=== PATIENT | male | born 1960 | race Caucasian/White ===

== ENCOUNTER 2017-08-27 11:11 | Inpatient (IN) ==
--- NOTE | 2017-08-27 12:15 | Emergency Department Note ---
Disposition Clinical Impression: Hepatic encephalopathy Disposition: Admitted As Inpatient Condition: Fair Time of Disposition: 14:39 Altered Mental Status HPI - General Chief Complaint: ED Altered Mental Status Stated Complaint: bone CA, shakey/AMS Time Seen by Provider: 08/27/17 11:20 Source: family Limitations: altered mental status Nursing Notes Reviewed: Yes Vital Signs Reviewed: Yes - History of Present Illness HPI Narrative: Patient is a 57-year-old male with a past medical history of hepatocellular carcinoma with skeletal metastasis who presents from the cancer center with feeling shaky and being confused since this morning. Patient's states that the cancer center thinks it could be a reaction to one of his chemotherapy medications. Denies any fevers, chills, nausea, vomiting, chest pain, difficulty breathing, abdominal pain. is unsure about his urination or bowel movements. Thinks it is possible he might have a bladder infection. Patient is only oriented to his name. MD complaint: altered mental status Onset (ago): hour(s) Timing confirmed by: spouse Consistency of Symptoms: getting worse Context: cancer Associated symptoms: Reports: denies other symptoms, weakness. Denies: chest pain, cough, fever, chills, nausea/vomiting, shortness of breath - Related Data Home Medications Medication Instructions Recorded Confirmed Atorvastatin [Lipitor] 20 mg PO HS 07/17/15 08/27/17 Cyanocobalamin (Vitamin B-12) 1,000 mcg PO QAM 07/17/15 08/27/17 [Vitamin B12] Furosemide [Lasix] 40 mg PO TID 07/17/15 08/27/17 HydrOXYzine 25 mg PO TID 07/17/15 08/27/17 Lactulose 15 ml PO TID PRN 07/17/15 08/27/17 Multivitamin/Iron/Folic Acid 1 tab PO QAM 07/17/15 08/27/17 [Centrum Complete Multivit Tab] Zinc Sulfate 220 mg PO QAM 07/17/15 08/27/17 Insulin ASPART [NovoLOG] 8 - 10 unit SQ TID 11/03/16 08/27/17 Insulin Glargine [Lantus] 36 unit SQ HS 11/03/16 08/27/17 Rifaximin [Xifaxan] 550 mg PO BID 11/03/16 08/27/17 Iron Polysaccharide Complex 100 mg PO BID 06/16/17 08/27/17 [Ferrex 150] Omeprazole [PriLOSEC] 20 mg PO BID 08/12/17 08/27/17 Atenolol [Tenormin] 25 mg PO Q48H 08/27/17 08/27/17 Previous Rx's Medication Instructions Recorded Spironolactone [Aldactone] 50 mg PO DAILY #30 tablet 12/09/16 Fentanyl [Duragesic] 12 mcg TD Q72H #10 patch.td72 08/12/17 OxyCODONE Immed Rel [Roxicodone 5 5 mg PO Q4H PRN #120 tablet 08/12/17 MG] Allergies Allergy/AdvReac Type Severity Reaction Status Date / Time codeine AdvReac Vomiting Verified 08/27/17 10:32 All systems ED: reviewed and negative except as stated. Past Medical History - Past Medical History Attestation: Yes The following information was validated with the patient. Source: patient Medical history: Reports: cancer, cirrhosis, GERD, hyperlipidemia, hypertension , other Surgical history: Reports: cholecystectomy, orthopedic, other Psychiatric history: Reports: no psych history - Social History Smoking Status: Former smoker Smokeless Tobacco Status: No Alcohol use: Reports: none Drug use: Reports: none Physical Exam - General Limitations: altered mental status General appearance: alert, lethargic, cachectic - Head Head exam: atraumatic, normocephalic, normal inspection - Eye Eye exam: Present: normal appearance, EOMI - ENT ENT exam: normal exam, normal oropharynx, mucous membranes moist - Neck Neck exam: Present: normal inspection, full ROM, trachea midline - Chest Chest inspection: Present: normal inspection, symmetric chest wall rise - Respiratory Respiratory exam: Present: normal lung sounds bilaterally - Cardiovascular Cardiovascular exam: Present: regular rate, normal rhythm, normal heart sounds - Abdominal Exam Abdominal exam: Present: soft, Non-Tender. Absent: tenderness, distention, guarding, rebound, rigidity - Extremities Exam Extremities exam: Present: normal inspection, full ROM. Absent: tenderness, pedal edema - Back Exam Back exam: Present: tenderness - Neurological Exam Neurological exam: Present: alert. Absent: oriented X3 - Psychiatric Psychiatric exam: Present: normal affect, normal mood - Skin Skin exam: Present: warm, dry, intact, normal color Course Course Narrative: Patient seen and examined. Patient with bone metastasis from hepatocellular carcinoma. He is alert but only oriented to his name here. We will do altered mental status workup along with CT of the head. Spoke with oncology who has no additional input at this time. States the patient needs to be admitted, they can be consulted.. - Reevaluation(s) Reevaluation #1: Patient's lab work does show a little worsening hemoglobin at 8.9. He also has elevated ammonia. We will admit for hepatic encephalopathy. 60 g of lactulose given. I discussed with hospitalist Dr. Marroquin who has accepted for admission. Time: 14:00 Vital Signs Temperature 98.6 F 08/27/17 11:26 Pulse Rate 99 08/27/17 11:26 Respiratory Rate 18 08/27/17 11:26 Blood Pressure 119/63 08/27/17 11:26 O2 Sat by Pulse Oximetry 97 08/27/17 11:26 Temperature 98.7 F 08/27/17 20:29 Pulse Rate 112 08/27/17 20:29 Respiratory Rate 18 08/27/17 20:29 Blood Pressure 126/77 08/27/17 20:29 O2 Sat by Pulse Oximetry 95 08/27/17 20:29 Oxygen Delivery Oxygen Delivery Room Air Altered Mental Status - Medical Records Medical records reviewed: Yes I reviewed the patient's medical records. - Lab Data Lab results reviewed: Yes I reviewed the patient's lab results. Result diagrams: 08/27/17 12:26 08/27/17 12:26 Lab Results 08/27/17 08/27/17 08/27/17 Range/Units 12:26 12:26 12:26 WBC 9.1 (4.3-11.1) K/mcL RBC 3.33 L (4.19-5.50) M/mcL Hgb 8.6 L (12.9-16.9) g/dL Hct 25.8 L (37.5-50.1) % MCV 77.5 L (83.0-100.0) fL MCH 25.8 L (28.0-33.3) pg MCHC 33.3 (31.6-35.5) g/dL RDW 18.9 H (11.5-14.5) % Plt Count 89 L (140-400) K/mcL MPV 9.6 (9.4-12.4) fL Immature Gran % 1.2 (0-4) % Seg Neutrophils % 82.8 % Lymphocytes % 6.9 % Monocytes % 8.7 % Eosinophils % 0.2 % Basophils % 0.2 % Neutrophils # 7.5 (1.6-8.9) K/mcL Lymphocytes # 0.6 (0.6-4.6) K/mcL Monocytes # 0.8 (0.0-1.3) K/mcL Eosinophils # 0.0 (0.0-0.6) K/mcL Basophils # 0.0 (0.0-0.2) K/mcL Nucleated RBCs/100 WBC 0.3 H (0) /100 WBC Immature Plt Fraction 4.4 (1.1-6.1) % PT 20.2 H (9.4-12.1) Seconds INR 1.9 APTT 31.1 (26.0-36.0) Seconds Sodium 131 L (136-145) mEq/L Potassium 4.0 (3.5-4.5) mEq/L Chloride 98 (98-109) mEq/L Carbon Dioxide 22 (19-29) mEq/L BUN 25 (8-26) mg/dL Creatinine 1.04 (0.72-1.25) mg/dL Est GFR ( Amer) > 60 (> 60) Est GFR (Non-Af Amer) > 60 (> 60) BUN/Creatinine Ratio 24 (6-26) Glucose 105 H (70-99) mg/dL Calculated Osmolality 277 L (280-300) Calcium 7.9 L (8.6-10.8) mg/dL Total Bilirubin 1.4 H (0.2-1.2) mg/dL Direct Bilirubin 0.8 H (0.0-0.5) mg/dL Indirect Bilirubin 0.6 (0.0-1.2) mg/dL AST 76 H (5-34) Units/L ALT 70 H (0-55) Units/L Alkaline Phosphatase 802 H (38-126) Units/L Ammonia (18-72) mcmol/L Troponin I (0-0.03) ng/mL Serum Total Protein 6.3 (6.0-8.3) g/dL Albumin 2.2 L (3.5-5.0) g/dL Globulin 4.1 H (2.4-3.5) g/dL Albumin/Globulin Ratio 0.5 L (1.1-2.2) TSH 1.471 (0.350-4.840) mcIU/mL Urine Color (Yellow) Urine Clarity (Clear) Urine pH (5.0-8.0) pH Units Ur Specific Converse (1.010-1.025) Urine Protein (Neg-Trace) mg/dL Urine Glucose (UA) (Normal) mg/dL Urine Ketones (Negative) mg/dL Urine Blood (Negative) Urine Nitrite (Negative) Urine Bilirubin (Negative) Urine Urobilinogen (Normal) mg/dL Ur Leukocyte Esterase (Negative) Ur Culture Indicated? (NO) Urine Opiates Screen (Qznang=285) ng/mL Ur Barbiturates Screen (Efgnos=787) ng/mL Ur Phencyclidine Scrn (Cutoff=25) ng/mL Ur Amphetamines Screen (Uhnotf=2411) ng/mL U Benzodiazepines Scrn (Xfcuwb=690) ng/mL Urine Cocaine Screen (Cutoff= 300) ng/mL U Marijuana (THC) Screen (Cutoff = 50) ng/mL Ethyl Alcohol < 10 (0-10) mg/dL 08/27/17 08/27/17 08/27/17 Range/Units 12:26 12:26 12:32 WBC (4.3-11.1) K/mcL RBC (4.19-5.50) M/mcL Hgb (12.9-16.9) g/dL Hct (37.5-50.1) % MCV (83.0-100.0) fL MCH (28.0-33.3) pg MCHC (31.6-35.5) g/dL RDW (11.5-14.5) % Plt Count (140-400) K/mcL MPV (9.4-12.4) fL Immature Gran % (0-4) % Seg Neutrophils % % Lymphocytes % % Monocytes % % Eosinophils % % Basophils % % Neutrophils # (1.6-8.9) K/mcL Lymphocytes # (0.6-4.6) K/mcL Monocytes # (0.0-1.3) K/mcL Eosinophils # (0.0-0.6) K/mcL Basophils # (0.0-0.2) K/mcL Nucleated RBCs/100 WBC (0) /100 WBC Immature Plt Fraction (1.1-6.1) % PT (9.4-12.1) Seconds INR APTT (26.0-36.0) Seconds Sodium (136-145) mEq/L Potassium (3.5-4.5) mEq/L Chloride (98-109) mEq/L Carbon Dioxide (19-29) mEq/L BUN (8-26) mg/dL Creatinine (0.72-1.25) mg/dL Est GFR ( Amer) (> 60) Est GFR (Non-Af Amer) (> 60) BUN/Creatinine Ratio (6-26) Glucose (70-99) mg/dL Calculated Osmolality (280-300) Calcium (8.6-10.8) mg/dL Total Bilirubin (0.2-1.2) mg/dL Direct Bilirubin (0.0-0.5) mg/dL Indirect Bilirubin (0.0-1.2) mg/dL AST (5-34) Units/L ALT (0-55) Units/L Alkaline Phosphatase (38-126) Units/L Ammonia 140 H (18-72) mcmol/L Troponin I 0.02 (0-0.03) ng/mL Serum Total Protein (6.0-8.3) g/dL Albumin (3.5-5.0) g/dL Globulin (2.4-3.5) g/dL Albumin/Globulin Ratio (1.1-2.2) TSH (0.350-4.840) mcIU/mL Urine Color Dark Yellow (Yellow) Urine Clarity Clear (Clear) Urine pH 5.0 (5.0-8.0) pH Units Ur Specific Converse 1.015 (1.010-1.025) Urine Protein Negative (Neg-Trace) mg/dL Urine Glucose (UA) Normal (Normal) mg/dL Urine Ketones Negative (Negative) mg/dL Urine Blood Negative (Negative) Urine Nitrite Negative (Negative) Urine Bilirubin Negative (Negative) Urine Urobilinogen Normal (Normal) mg/dL Ur Leukocyte Esterase Negative (Negative) Ur Culture Indicated? NO (NO) Urine Opiates Screen (Czjmuf=856) ng/mL Ur Barbiturates Screen (Gneacn=135) ng/mL Ur Phencyclidine Scrn (Cutoff=25) ng/mL Ur Amphetamines Screen (Gqvciw=9916) ng/mL U Benzodiazepines Scrn (Wkxddd=897) ng/mL Urine Cocaine Screen (Cutoff= 300) ng/mL U Marijuana (THC) Screen (Cutoff = 50) ng/mL Ethyl Alcohol (0-10) mg/dL 08/27/17 Range/Units 12:32 WBC (4.3-11.1) K/mcL RBC (4.19-5.50) M/mcL Hgb (12.9-16.9) g/dL Hct (37.5-50.1) % MCV (83.0-100.0) fL MCH (28.0-33.3) pg MCHC (31.6-35.5) g/dL RDW (11.5-14.5) % Plt Count (140-400) K/mcL MPV (9.4-12.4) fL Immature Gran % (0-4) % Seg Neutrophils % % Lymphocytes % % Monocytes % % Eosinophils % % Basophils % % Neutrophils # (1.6-8.9) K/mcL Lymphocytes # (0.6-4.6) K/mcL Monocytes # (0.0-1.3) K/mcL Eosinophils # (0.0-0.6) K/mcL Basophils # (0.0-0.2) K/mcL Nucleated RBCs/100 WBC (0) /100 WBC Immature Plt Fraction (1.1-6.1) % PT (9.4-12.1) Seconds INR APTT (26.0-36.0) Seconds Sodium (136-145) mEq/L Potassium (3.5-4.5) mEq/L Chloride (98-109) mEq/L Carbon Dioxide (19-29) mEq/L BUN (8-26) mg/dL Creatinine (0.72-1.25) mg/dL Est GFR ( Amer) (> 60) Est GFR (Non-Af Amer) (> 60) BUN/Creatinine Ratio (6-26) Glucose (70-99) mg/dL Calculated Osmolality (280-300) Calcium (8.6-10.8) mg/dL Total Bilirubin (0.2-1.2) mg/dL Direct Bilirubin (0.0-0.5) mg/dL Indirect Bilirubin (0.0-1.2) mg/dL AST (5-34) Units/L ALT (0-55) Units/L Alkaline Phosphatase (38-126) Units/L Ammonia (18-72) mcmol/L Troponin I (0-0.03) ng/mL Serum Total Protein (6.0-8.3) g/dL Albumin (3.5-5.0) g/dL Globulin (2.4-3.5) g/dL Albumin/Globulin Ratio (1.1-2.2) TSH (0.350-4.840) mcIU/mL Urine Color (Yellow) Urine Clarity (Clear) Urine pH (5.0-8.0) pH Units Ur Specific Converse (1.010-1.025) Urine Protein (Neg-Trace) mg/dL Urine Glucose (UA) (Normal) mg/dL Urine Ketones (Negative) mg/dL Urine Blood (Negative) Urine Nitrite (Negative) Urine Bilirubin (Negative) Urine Urobilinogen (Normal) mg/dL Ur Leukocyte Esterase (Negative) Ur Culture Indicated? (NO) Urine Opiates Screen Negative (Arcucz=466) ng/mL Ur Barbiturates Screen Negative (Rwzoue=455) ng/mL Ur Phencyclidine Scrn Negative (Cutoff=25) ng/mL Ur Amphetamines Screen Negative (Eawncu=9551) ng/mL U Benzodiazepines Scrn Negative (Qqewik=855) ng/mL Urine Cocaine Screen Negative (Cutoff= 300) ng/mL U Marijuana (THC) Screen Negative (Cutoff = 50) ng/mL Ethyl Alcohol (0-10) mg/dL - Radiology Data Radiology results reviewed: Yes I reviewed the patient's radiology results. Chest X-Ray 08/27/17 12:08 IMPRESSION: No acute process. D/ / Raymundo Crews MD / Raymundo Crews MD Interpreting Provider: Raymundo Crews MD - EKG Data EKG attestation: Yes I reviewed and interpreted this EKG. EKG results narrative: EKG done at 1126 shows normal sinus rhythm with a rate of 99 beats per minute. No acute ST elevation or depression. Normal axis. Appears unchanged from prior EKG done 04/18/2015. Attestation Statement - Attestation Attestation: I examined this patient and my medical decision-making was reviewed with the Resident Physician. I agree with the documented findings, disposition and treatment plan as described except to the extent set forth below. Patient to the ED with altered mental status. He was sent from the cancer center. He is currently under their care for hepatocellular carcinoma. On examination he is awake and alert. Disoriented. Soft abdomen with no ascites. Lungs clear. Plan. The patient has an elevated ammonia level. Head CT unremarkable. Admitted to medicine. 60 g of lactulose given.
[2017-08-27 12:35] LABS: Basophils % 0.2 %; Eosinophils % 0.2 %; Hemoglobin 8.6 g/dL (12.9-16.9)
[2017-08-27 12:37] LABS: Hematocrit 25.8 % (37.5-50.1); Immature Granulocytes % 1.2 % (0-4); Immature Platelets 4.4 % (1.1-6.1); Lymphocytes # 0.6 K/mcL (0.6-4.6); Lymphocytes % 6.9 %; Mean Corpuscular HGB Conc 33.3 g/dL (31.6-35.5); Mean Corpuscular Hemoglobin 25.8 pg (28.0-33.3); Mean Corpuscular Volume 77.5 fL (83.0-100.0); Mean Platelet Volume 9.6 fL (9.4-12.4); Monocytes # 0.8 K/mcL (0.0-1.3); Monocytes % 8.7 %; Neutrophils # 7.5 K/mcL (1.6-8.9); Nucleated Red Blood Cells 0.3 /100 WBC (0); Platelet Count 89 K/mcL (140-400); Red Blood Count 3.33 M/mcL (4.19-5.50); Red Cell Distribution Width 18.9 % (11.5-14.5); Segmented Neutrophils % 82.8 %
[2017-08-27 12:38] LABS: Bilirubin,Urine Negative (Negative); Blood,Urine Negative (Negative); Clarity,Urine Clear (Clear); Color,Urine Dark Yellow (Yellow); Glucose,Urine (UA) Normal (Normal); Ketones,Urine Negative (Negative); Leukocyte Esterase,Urine Negative (Negative); Nitrite,Urine Negative (Negative); Protein,Urine Negative (Neg-Trace); Specific Gravity,Urine 1.015 (1.010-1.025); Urobilinogen,Urine Normal (Normal)
[2017-08-27 12:44] LABS: Amphetamine Screen,Urine Negative ng/mL (Cutoff=1000); Barbiturate Screen,Urine Negative ng/mL (Cutoff=200); Benzodiazepines Screen,Urine Negative ng/mL (Cutoff=200); Cannabinoid Screen,Urine Negative ng/mL (Cutoff = 50); Cocaine Screen,Urine Negative ng/mL (Cutoff= 300); Opiate Screen,Urine Negative ng/mL (Cutoff=300); Phencyclidine Screen,Urine Negative ng/mL (Cutoff=25)
[2017-08-27 12:45] LABS: INR 1.9; Prothrombin Time 20.2 Seconds (9.4-12.1)
[2017-08-27 12:48] LABS: Activated Partial Thrombo Time 31.1 Seconds (26.0-36.0)
[2017-08-27 12:49] LABS: BUN/Creatinine Ratio 24 (6-26); Blood Urea Nitrogen 25 mg/dL (8-26); Carbon Dioxide 22 mEq/L (19-29); Chloride 98 mEq/L (98-109); Glucose 105 mg/dL (70-99); Sodium 131 mEq/L (136-145); eGFR For African Americans > 60 (> 60); eGFR For Non-African Americans > 60 (> 60)
[2017-08-27 12:50] LABS: Alanine Aminotransferase 70 Units/L (0-55); Albumin 2.2 g/dL (3.5-5.0); Albumin/Globulin Ratio 0.5 (1.1-2.2); Alkaline Phosphatase 802 Units/L (38-126); Aspartate Amino Transferase 76 Units/L (5-34); Bilirubin,Direct 0.8 mg/dL (0.0-0.5); Bilirubin,Indirect 0.6 mg/dL (0.0-1.2); Bilirubin,Total 1.4 mg/dL (0.2-1.2); Calcium 7.9 mg/dL (8.6-10.8); Ethanol < 10 mg/dL (0-10); Globulin 4.1 g/dL (2.4-3.5); Osmolality,Calculated 277 (280-300); Total Protein 6.3 g/dL (6.0-8.3)
[2017-08-27 13:11] LABS: Thyroid Stimulating Hormone 1.471 mcIU/mL (0.350-4.840)
[2017-08-27] MEDS ORDERED: Lactulose Oral Soln 20 GM/30 ML UDC PO ONE (13:46)
[2017-08-27] MEDS ORDERED: Ondansetron 4 MG/2 ML VIAL IVP PRN (14:37)
[2017-08-27] MEDS ORDERED: Acetaminophen 325 MG TABLET PO PRN (14:37)
[2017-08-27] MEDS ORDERED: Naloxone 0.4 MG/ML INJ IVP PRN (14:37)
[2017-08-27] MEDS ORDERED: *HR* OxyCODONE Immed Rel 5 MG TABLET PO PRN (14:59)
[2017-08-27] MEDS ORDERED: Dextrose Gel 15 GM PO PRN ×2 (15:03)
[2017-08-27] MEDS ORDERED: Benzonatate 100 MG CAPSULE PO PRN (15:03)
[2017-08-27] MEDS ORDERED: D5% in Water 1,000 ML IVC PRN (15:03)
[2017-08-27] MEDS ORDERED: *HR* Dextrose 50 % in Water (Syg) 50 ML SYRINGE IVP PRN (15:03)
--- NOTE | 2017-08-27 15:22 | Internal Med History&Physical ---
<Alize Valle - Last Filed: 08/27/17 18:25> Date of Encounter: 08/27/17 Internal Medicine - H&P: HPI History of present illness: Mr. Moralez is a 57 year old male Internal Medicine - H&P: Meds Atorvastatin [Lipitor] 20 mg PO HS 07/17/15 [History] Cyanocobalamin (Vitamin B-12) [Vitamin B12] 1,000 mcg PO QAM 07/17/15 [History] Furosemide [Lasix] 40 mg PO TID 07/17/15 [History] HydrOXYzine 25 mg PO TID 07/17/15 [History] Lactulose 15 ml PO TID PRN 07/17/15 [History] Multivitamin/Iron/Folic Acid [Centrum Complete Multivit Tab] 1 tab PO QAM [History] Zinc Sulfate 220 mg PO QAM 07/17/15 [History] Insulin ASPART [NovoLOG] 8 - 10 unit SQ TID 11/03/16 [History] Insulin Glargine [Lantus] 36 unit SQ HS 11/03/16 [History] Rifaximin [Xifaxan] 550 mg PO BID 11/03/16 [History] Spironolactone [Aldactone] 50 mg PO DAILY #30 tablet 12/09/16 [Rx] Iron Polysaccharide Complex [Ferrex 150] 100 mg PO BID 06/16/17 [History] Fentanyl [Duragesic] 12 mcg TD Q72H #10 patch.td72 08/12/17 [Rx] Omeprazole [PriLOSEC] 20 mg PO BID 08/12/17 [History] OxyCODONE Immed Rel [Roxicodone 5 MG] 5 mg PO Q4H PRN #120 tablet 08/12/17 [Rx] Atenolol [Tenormin] 25 mg PO Q48H 08/27/17 [History] 3 Allergy/AdvReac Type Severity Reaction Status Date / Time codeine AdvReac Vomiting Verified 08/27/17 10:32 All Systems PM: A 10-system review of systems was performed and is negative for pertinent findings except as documented above in the HPI. - Constitutional Vitals: Temp Pulse Resp BP Pulse Ox 98.2 F 93 16 112/65 99 08/27/17 15:40 08/27/17 15:40 08/27/17 15:40 08/27/17 15:40 08/27/17 16:05 Internal Med - H&P Results - Labs CBC & Chem 7: 08/27/17 12:26 08/27/17 12:26 - Attending Attestation Patient seen and examined, agree with assessment and plan of Isai Meraz CNP. Patient with hepatic encephalopathy in setting of cirrhosis and metastatic HCC. Patient admits to infrequent stools recently (approximately Q24 hours). Lactulose given on arrival to floor, and patient and family instructed on importance of titrating lactulose to 3 soft bowel movements daily. Patient awake but slightly lethargic on my evaluation, eating dinner. Abdomen soft and nontender, no fluid wave appreciated. <Isai Meraz G - Last Filed: 08/27/17 18:29> Date of Encounter: 08/27/17 Time of Encounter: 14:00 Assessment and Plan (1) Altered mental status Current visit: Yes Status: Acute Patient presents with acute AMS since yesterday afternoon. Patient has hx of hepatocellular carcinoma with skeletal metastases and cirrhosis. CT of the head today shows no intracranial abnormality. Ammonia level on admission was 140. Patient was oriented only to self in ED upon arrival. Patient takes 30 gm of lactulose daily and reports taking more yesterday due to constipation. 60 gm PO administered in the ED. Patient alert and oriented x3 following 60 gm administration. Will continue 60 gm BID with titration for 3 BMs daily and monitor patient's neurological status. Falls/safety precautions ordered. Qualifiers: Altered mental status type: delirium Qualified Code(s): R41.0 - Disorientation, unspecified (2) Hyperammonemia Current visit: Yes Status: Acute Patient presents with acute hyperammonemia level of 140 on admission which is most likely causing his AMS in combination with current constipation. Patient takes 30 gm lactulose daily. Received 60 gm in ED. Will administer 60 gm BID with titration for 3 BMs daily. Routine ammonia ordered today and in a.m. labs. Monitor patient for signs of declining neurological status. (3) Hyponatremia Current visit: Yes Status: Acute Patient presents with acute hyponatremia of 131 on admission most likely due to advanced cirrhosis. Will monitor sodium levels in a.m. labs. Will hold IV fluids and encourage PO liquids for now. Consider IV 0.9 NS if sodium level continues to fall. (4) Difficulty urinating Current visit: Yes Status: Acute Patient reports acute difficulty in urinating over the past 24 hours. Initial U/ A not indicative for culture. Bladder scans PRN for possible placement of indwelling Moore catheter if needed. Monitor I&O and daily weight. Continue spironolactone. (5) Diabetes Current visit: Yes Status: Chronic Hx of chronic diabetes controlled with insulin. BG 105 on admission. Will administer low-dose correction sliding scale insulin and hypoglycemic protocol. BG monitoring ACHS. A1c ordered in a.m. labs. Qualifiers: Diabetes mellitus type: type 2 Diabetes mellitus complication status: with unspecified complications Diabetes mellitus termite technician insulin use: with fdc use Qualified Code(s): E11.8 - Type 2 diabetes mellitus with unspecified complications; Z79.4 - termite technician (current) use of insulin (6) HTN (hypertension) Current visit: Yes Status: Chronic Hx of chronic HTN. Monitor patient and VS and continue spironolactone and atenolol. Qualifiers: Hypertension type: essential hypertension Qualified Code(s): I10 - Essential (primary) hypertension (7) HLD (hyperlipidemia) Current visit: Yes Status: Chronic Hx of chronic HLD. Lipid panel ordered in a.m. labs. Continue patient's PO Lipitor. Qualifiers: Hyperlipidemia type: pure hypercholesterolemia Qualified Code(s): E78.00 - Pure hypercholesterolemia, unspecified; E78.0 - Pure hypercholesterolemia (8) GERD (gastroesophageal reflux disease) Current visit: Yes Status: Chronic IVP Zofran Q6 PRN for nausea. IVP Protonix 40 mg BID for GERD symptoms. Qualifiers: Esophagitis presence: esophagitis presence not specified Qualified Code(s) : K21.9 - Gastro-esophageal reflux disease without esophagitis (9) Anemia Current visit: Yes Status: Chronic Hgb 8.6 and Hct 25.8 today, down from 11.0 and 33.2 on 08/12/17. Patient and deny unusual bleeding or blood in stool/emesis. Fecal hemoccult ordered. H/ H ordered in a.m. labs. Monitor follow-up labs and patient for signs of bleeding. Iron profile ordered. Will continue patient's PO B vitamins and iron supplementation. Qualifiers: Anemia type: unspecified type Qualified Code(s): D64.9 - Anemia, unspecified (10) DVT prophylaxis Current visit: Yes Status: Acute Bilateral SCDs to be placed on patient's LEs for DVT prophylaxis. Pharmacologic DVT prophylaxis contraindicated due to current drop in Hgb and Hct which may indicate bleed of unknown source. Internal Medicine - H&P: HPI Chief complaint: Altered Mental Status Admitted From: Emergency Dept Plans for Post Hospital Care: Home History of present illness: Mr. Moralez is a 57 year old male with medical history of hepatocellular carcinoma with skeletal metastasis, cirrhosis, GERD, HLD, HTN, diabetes controlled with insulin presents from the ED with chief complaint of altered mental status and shakiness that his reports began last night. Patient is currently taking chemotherapy pills and is followed by Dr. Qureshi. Patient's last cancer pill was taken yesterday morning. Patient was at oncology appointment today and was sent to the ED due to AMS and shakiness. Patient's states Dr. Qureshi is going to discontinue chemotherapy pill and replace with infusion therapy. Patient's states that Mr. Moralez has not had a bowel movement in several days and that he took more lactulose than usual yesterday for the constipation. She reports patient began acting altered yesterday afternoon and worsened over the evening. Patient and report difficulty in urinating but deny any recent illness, fever, chills, nausea, vomiting, chest pain, shortness of breath, abdominal pain, unusual bleeding, changes in vision, lightheadedness, dizziness, presyncope, or syncope. On admission, patient's vital signs include temperature of 98.6F, heart rate 99 bpm, respiratory rate of 18, BP 119/63, and SPO2 97% on room air. Abnormal labs include Hgb of 8.6 and HCT of 25.8 (down from 11.0 and 33.2 on 08/12/17), MCV of 77.5, MCH of 25.8, platelets of 89, PT of 20.2, sodium of 131, glucose of 105, calcium 7.9, total bilirubin 1.4, direct bilirubin 0.8, AST of 76, AST of 70, alkaline phosphatase 802, ammonia of 140. CT of the head today shows no acute intracranial abnormality. 1-View CXR today shows no acute process. Upon arriving to the ED, patient was only oriented to self. During examination following 60 gm of lactulose, patient was alert and oriented x3 and denies any discomfort. HR is RRR. Lungs clear bilaterally on auscultation. Patient is hemodynamically stable and reports no acute distress. Information obtained from patient, , chart review, and previous medical records. Mr. Moralez is at high risk for morbidity based on current cancer status, history of liver compromise, risk factors, and history and will be placed as observation status. Time spent with patient and family greater than 40 minutes. Past Med Surg Social Fam HX - Past Medical History Source: patient, old records reviewed, obtained from family Medical history: cancer (Hepatocellular carcinoma with skeletal metastases), cirrhosis, diabetes, GERD, hyperlipidemia, hypertension, other Psychiatric history: no psych history - Past Surgical History Surgical History: cholecystectomy, orthopedic, other - Social History Smoking Status: Current every day smoker Packs per day: 1/2 PPD Smokeless Tobacco Status: No Alcohol use: none Drug use: none Current living situation: Home, With Family Activity Level: Uses cane/walker Recent Out of Country Travel Within the Last 8 Weeks: No Exposure or Possible Exposure to Illness During Travel: No - Family History Mother Race: Family Member Ethnicity: Non- Living Status: Age at : 72 Cause of : HD Hx Family Cardiac Disorders: Yes (HD, HTN) Hx Family Neurologic Disorders: Yes (Alzheimer's disease) Father Race: Family Member Ethnicity: Non- Living Status: Age at : 68 Cause of : Lung cancer Hx Family Cardiac Disorders: Yes (HD) Hx Family Cancer: Yes (Lung, Jaw) Hx Family GI Disorders: Yes (Cirrhosis) Brother Race: Family Member Ethnicity: Non- Living Status: Still Living Hx Family Medical Disorders: No Sister Race: Family Member Ethnicity: Non- Living Status: Still Living Hx Family Endocrine Disorder: Yes (DM) All Systems PM: A 10-system review of systems was performed and is negative for pertinent findings except as documented above in the HPI. - Constitutional Constitutional: as per HPI, weakness, no chills, no fever(s), no night sweats - EENT Eyes: no change in vision, no discharge, no pain, no photophobia Ears: no ear discharge, no ear pain, no tinnitus Nose, mouth and throat: no dysphagia, no nasal discharge, no neck pain, no sore throat - Breasts Breasts: as per HPI - Cardiovascular Cardiovascular ROS IM: other (Tachycardia), no chest pain, no diaphoresis, no dyspnea, no lightheadedness, no palpitations, no syncope - Respiratory Respiratory: no cough, no dyspnea, no wheezing, no excessive phlegm production - Gastrointestinal Gastrointestinal: as per HPI, constipation, no abdominal pain, no diarrhea, no hematemesis, no hematochezia, no melena, no nausea, no vomiting - Genitourinary Genitourinary ROS male: as per HPI, difficulty urinating - Musculoskeletal Musculoskeletal ROS IM: no numbness, no tingling - Integumentary Integumentary IM: no rash, no unusual bruising - Neurological Neurological ROS: no confusion, no convulsions, no focal weakness, no numbness, no tingling, no tremor(s) - Psychiatric Psychiatric: as per HPI - Endocrine Endocrine IM: as per HPI - Hematologic/Lymphatic Hematologic/Lymphatic: no easy bruising - Allergic/Immunologic Allergic/Immunologic: as per HPI - Constitutional Vitals: Temp Pulse Resp BP Pulse Ox 98.6 F 97 18 119/65 100 08/27/17 11:26 08/27/17 12:37 08/27/17 14:31 08/27/17 14:31 08/27/17 12:37 General appearance: Present: cooperative, A&O X 3, pleasant, no acute distress, underweight, answers questions appropriately - Head Head exam: Present: atraumatic, normocephalic - Eye Eye exam: Present: PERRL, conjuntiva pink, sclera anicteric Pupils: Present: PERRL - ENT ENT exam: Present: normal exam - Neck Neck exam general surgery: Present: normal inspection, supple, trachea midline - Respiratory Respiratory exam: Present: CTAB. Absent: accessory muscle use, rales, rhonchi, wheezes - Cardiovascular Cardiovascular exam: Present: RRR, +S1, +S2. Absent: diastolic murmur, gallop, rubs, systolic murmur - GI/Abdominal GI/Abdominal exam: Present: diminished bowel sounds, soft, no peritoneal signs. Absent: distended, tenderness - Rectal Rectal exam: Present: deferred - Additional comments: exam deferred. - Extremities Exam Extremities exam: Present: warm, radial pulses palpable and symmetrical. Absent : calf tenderness, cyanotic, pedal edema - Back Exam Back exam: Present: normal inspection - Neurological Exam Neurological exam: Present: alert, oriented X3 - Psychiatric Psychiatric exam: Present: flat affect, normal affect - Skin Skin exam: Present: dry, intact Internal Med - H&P Results - Labs CBC & Chem 7: 08/27/17 12:26 08/27/17 12:26 - EKG Data EKG shows normal: sinus rhythm Rate: normal - EKG Data Prior EKG available for review: yes EKG comments: 08/27/17 15:36 EKG dated 04/18/15 shows sinus rhythm with marked sinus arrhythmia with first- degree AV block and moderate intraventricular conduction delay. EKG dated 08/27/17 shows sinus rhythm and normal ECG. - Diagnostic Studies Chest x-ray Additional comments: Impressions Chest X-Ray 08/27/17 12:08 IMPRESSION: No acute process. D/ / Raymundo Crews MD / Raymundo Crews MD Interpreting Provider: Raymundo Crews MD CT scan - head Additional comments: Impressions Head CT 08/27/17 12:09 IMPRESSION: No acute intracranial abnormality. D/ / Howie Little MD / Howie Little MD Interpreting Provider: Howie Little MD
[2017-08-27] MEDS: Furosemide 40 MG TABLET PO SCH ×2 (15:54→22:37)
[2017-08-27] MEDS: Nicotine 14 MG PATCH.TD24 TD SCH (15:54)
[2017-08-27] MEDS: Insulin LISPRO 300 UNITS/3 ML VIAL SQ SCH ×2 (16:11→22:35)
[2017-08-27 17:45] LABS: % Iron Saturation 10 % (20-55); Iron 27 mcg/dL (65-175); Transferrin 185 mg/dL (174-364)
[2017-08-27] MEDS: *HR* FentaNYL PATCH 12 MCG PATCH TD SCH (17:52)
--- NOTE | 2017-08-27 19:54 | Oncology Inp Consult Note ---
Date of Encounter: 08/27/17 Time of Encounter: 19:45 Assessment and Plan (1) Hepatic encephalopathy Status: Resolved Assessment and plan: - Clinical and lab findings are consistent with acute liver encephalopathy, based on improvement after treatment with lactulose and amonia level of 140 mg/ dl. - Total bilirrubin level is elevated, but close to prior baseline values. (2) HCC (hepatocellular carcinoma) Status: Chronic Assessment and plan: - Being treated with palliative sorafenib 400 mg BID since May 2017. Last dose yesterday. - Continue holding sorafenib, and upon discharge arrange for a short follow up with primary oncologist to discuss the appropriate time to resume it. (3) Diabetes Status: Chronic Assessment and plan: - Serum glucoses within acceptable range. Continue management as per primary team. Qualifiers: Diabetes mellitus type: type 2 Diabetes mellitus complication status: with unspecified complications Diabetes mellitus halfway insulin use: with halfway use Qualified Code(s): E11.8 - Type 2 diabetes mellitus with unspecified complications; Z79.4 - petroleum terminal plant operator (current) use of insulin - Data of Consult Requesting Physician: Jyothi Brown MD Primary Care Provider: Raymundo Escobedo, - Consult Narrative Reason for consult: management of metastatic HCC, liver encephalopathy History of present illness: Mr. Moralez is a 57 year old male with metastatic HCC referred from the oncology clinic to the ED after found to be acutely confused. He was accompanied by his during the hospital visit. His past medical history includes a history of liver cirrhosis due to alcoholism. His oncology history includes s/p TACE x 2 in 07/2015 and August 2015, percutaneous ablation in Oct 2015, another treatment with TACE in November 2016 and Dec 2016, Ytrium-90 in March 2017. MRI from April 2017 showed evidence of multi focal metastatic disease with lesions at the level of his spine. he was started on sorafenib on June 08, 2017. He took his last dose of sorafenib yesterday. He returned today to the oncology office and was found to present tremors, and being confused. He was referred to the ED, his amonia level was found 140. He was started on lactulose and so far has had 2 soft bowel movements. His thinks that his mental status has improved significantly, currently talking and explaining basic concepts about his medical issues, however still not back to baseline; he was unable to tell me the current month and the year. He denies pain during the visit. Past Med Surg Social Fam HX - Past Medical History Medical history: cancer (Hepatocellular carcinoma with skeletal metastases), cirrhosis, diabetes, GERD, hyperlipidemia, hypertension, other Psychiatric history: no psych history - Past Surgical History Surgical History: cholecystectomy, orthopedic, other - Social History Smoking Status: Current every day smoker Packs per day: 1/2 PPD Smokeless Tobacco Status: No Alcohol use: none Drug use: none - Family History Brother History Unknown: Yes Race: Family Member Ethnicity: Non- Living Status: Still Living Hx Family Medical Disorders: No Sister History Unknown: Yes Race: Family Member Ethnicity: Non- Living Status: Still Living Hx Family Endocrine Disorder: Yes (DM) Mother History Unknown: Yes Race: Family Member Ethnicity: Non- Living Status: Age at : 72 Cause of : HD Hx Family Cardiac Disorders: Yes (HD, HTN) Hx Family Neurologic Disorders: Yes (Alzheimer's disease) Father History Unknown: Yes Race: Family Member Ethnicity: Non- Living Status: Age at : 68 Cause of : Lung cancer Hx Family Cardiac Disorders: Yes (HD) Hx Family Respiratory Disorders: Yes (only 1 lung due to lung cancer) Hx Family Cancer: Yes (Lung, Jaw) Hx Family GI Disorders: Yes (Cirrhosis) Medications and Allergies Atorvastatin [Lipitor] 20 mg PO HS 07/17/15 [History] Cyanocobalamin (Vitamin B-12) [Vitamin B12] 1,000 mcg PO QAM 07/17/15 [History] Furosemide [Lasix] 40 mg PO TID 07/17/15 [History] HydrOXYzine 25 mg PO TID 07/17/15 [History] Lactulose 15 ml PO TID PRN 07/17/15 [History] Multivitamin/Iron/Folic Acid [Centrum Complete Multivit Tab] 1 tab PO QAM [History] Zinc Sulfate 220 mg PO QAM 07/17/15 [History] Insulin ASPART [NovoLOG] 8 - 10 unit SQ TID 11/03/16 [History] Insulin Glargine [Lantus] 36 unit SQ HS 11/03/16 [History] Rifaximin [Xifaxan] 550 mg PO BID 11/03/16 [History] Spironolactone [Aldactone] 50 mg PO DAILY #30 tablet 12/09/16 [Rx] Iron Polysaccharide Complex [Ferrex 150] 100 mg PO BID 06/16/17 [History] Fentanyl [Duragesic] 12 mcg TD Q72H #10 patch.td72 08/12/17 [Rx] Omeprazole [PriLOSEC] 20 mg PO BID 08/12/17 [History] OxyCODONE Immed Rel [Roxicodone 5 MG] 5 mg PO Q4H PRN #120 tablet 08/12/17 [Rx] Atenolol [Tenormin] 25 mg PO Q48H 08/27/17 [History] 3 Allergy/AdvReac Type Severity Reaction Status Date / Time codeine AdvReac Vomiting Verified 08/27/17 10:32 Constitutional: Present: fatigue, lethargy. Absent: fever(s) Eyes: Absent: diplopia Ears: Absent: ear pain Nose, mouth and throat: Absent: dizziness Cardiovascular: Absent: chest pain, leg edema Respiratory: Absent: hemoptysis, pain on inspiration Gastrointestinal: Present: change in bowel habits, diarrhea, nausea. Absent: coffee ground emesis Musculoskeletal: Absent: back pain Neurological: Present: abnormal movements, behavioral changes Psychiatric: Present: behavioral changes, change in appetite, confusion Hematologic/Lymphatic: Present: as per HPI Oncology - Exam - Constitutional Vitals: Temp Pulse Resp BP Pulse Ox 98.2 F 93 16 112/65 99 08/27/17 15:40 08/27/17 15:40 08/27/17 15:40 08/27/17 15:40 08/27/17 16:05 - Head Head exam: Present: normal inspection, normocephalic - Eye Eye exam: Present: EOMI, normal appearance - Neck Neck exam: Present: normal inspection. Absent: lymphadenopathy - Respiratory Respiratory exam: Present: CTAB. Absent: prolonged expiratory phase, rales - Cardiovascular Cardiovascular exam: Present: RRR. Absent: JVD - GI/Abdominal GI/Abdominal exam: Present: hyperactive bowel sounds. Absent: organomegaly, pulsatile mass, rebound, tenderness - Extremities Exam Extremities exam: Present: normal inspection. Absent: pedal edema - Back Exam Back exam: Absent: paraspinal tenderness - Neurological Exam Neurological exam: Present: alert (Oriented x 2, he was unable to tell me the current year and month.) - Psychiatric Psychiatric exam: Present: anxious. Absent: manic - Skin Skin exam: Present: pallor. Absent: rash Consult Discharge Plan - Plan Referrals: NONE,PCP [Non-Partnered Physician] -
[2017-08-27] MEDS: Lactulose Oral Soln 20 GM/30 ML UDC PO SCH (22:36)
[2017-08-27] MEDS: Iron Polysaccharide Complex 150 MG CAPSULE PO SCH (22:37)
[2017-08-27] MEDS: Pantoprazole 40 MG VIAL IVP SCH (22:37)
[2017-08-27] MEDS: *HR* OxyCODONE Immed Rel 5 MG TABLET PO PRN (23:00)
[2017-08-28 04:12] LABS: Eosinophils % 0.2 %; Mean Corpuscular HGB Conc 32.7 g/dL (31.6-35.5); Mean Corpuscular Hemoglobin 25.8 pg (28.0-33.3); Red Cell Distribution Width 19.1 % (11.5-14.5)
[2017-08-28 04:13] LABS: Basophils % 0.2 %; Hemoglobin 8.5 g/dL (12.9-16.9); Immature Platelets 4.4 % (1.1-6.1); Lymphocytes # 0.9 K/mcL (0.6-4.6); Lymphocytes % 8.5 %; Mean Corpuscular Volume 78.8 fL (83.0-100.0); Mean Platelet Volume 9.3 fL (9.4-12.4); Monocytes % 11.1 %; Nucleated Red Blood Cells 0.4 /100 WBC (0)
[2017-08-28 04:15] LABS: Monocytes # 1.1 K/mcL (0.0-1.3); Platelet Count 97 K/mcL (140-400)
[2017-08-28 04:23] LABS: Hemoglobin A1C 5.8 %
[2017-08-28 04:27] LABS: Alanine Aminotransferase 73 Units/L (0-55); Albumin 2.2 g/dL (3.5-5.0); Albumin/Globulin Ratio 0.6 (1.1-2.2); Alkaline Phosphatase 800 Units/L (38-126); Aspartate Amino Transferase 78 Units/L (5-34); BUN/Creatinine Ratio 22 (6-26); Bilirubin,Total 1.5 mg/dL (0.2-1.2); Blood Urea Nitrogen 24 mg/dL (8-26); Calcium 7.6 mg/dL (8.6-10.8); Carbon Dioxide 20 mEq/L (19-29); Chloride 98 mEq/L (98-109); Chol/HDL Ratio 13.8 (0-4.9); Cholesterol 83 mg/dL (< 200); Globulin 3.9 g/dL (2.4-3.5); Glucose 156 mg/dL (70-99); HDL Cholesterol 6 mg/dL (40-59); LDL Cholesterol,Calculated 54 mg/dL (0-99); Magnesium 1.3 mg/dL (1.6-2.6); Osmolality,Calculated 277 (280-300); Phosphorous 2.7 mg/dL (2.3-4.7); Potassium 3.4 mEq/L (3.5-4.5); Sodium 130 mEq/L (136-145); Total Protein 6.1 g/dL (6.0-8.3); Triglycerides 114 mg/dL (< 150); eGFR For African Americans > 60 (> 60); eGFR For Non-African Americans > 60 (> 60)
[2017-08-28 04:33] LABS: Anisocytosis 2+ (Not Present); Platelet Estimate Decreased (Normal); Schistocytes 1+ (Not Present)
[2017-08-28 04:34] LABS: INR 1.9; Macrocytosis Present (Not Present); Microcytosis Present (Not Present); Poikilocytosis 1+ (Not Present); Polychromasia 1+ (Not Present); Prothrombin Time 20.9 Seconds (9.4-12.1)
[2017-08-28 04:36] LABS: Activated Partial Thrombo Time 33.1 Seconds (26.0-36.0)
[2017-08-28] MEDS: Cyanocobalamin (B-12) 1,000 MCG TABLET PO SCH (08:41)
[2017-08-28] MEDS: Multivit/Ca/Min/Fe/FA 1 TAB TABLET PO SCH (08:41)
[2017-08-28] MEDS: Iron Polysaccharide Complex 150 MG CAPSULE PO SCH ×2 (08:41→20:52)
[2017-08-28] MEDS: Furosemide 40 MG TABLET PO SCH (08:41)
[2017-08-28] MEDS: Zinc Sulfate 220 MG CAPSULE PO SCH (08:41)
[2017-08-28] MEDS: Nicotine 14 MG PATCH.TD24 TD SCH (08:42)
[2017-08-28] MEDS: Insulin LISPRO 300 UNITS/3 ML VIAL SQ SCH ×4 (08:43→20:47)
[2017-08-28] MEDS: Pantoprazole 40 MG VIAL IVP SCH ×2 (08:43→20:50)
[2017-08-28] MEDS: Lactulose Oral Soln 20 GM/30 ML UDC PO SCH ×5 (08:52→20:50)
--- NOTE | 2017-08-28 10:27 | Internal Med Progress Note ---
Date of Encounter: 08/28/17 Time of Encounter: 10:25 - Assessment and plan (1) Hepatic encephalopathy Current Visit: Yes Status: Resolved Assessment and plan: Acute hepatic encephalopathy due to cirrhosis and hepatocellular carcinoma Continue lactulose, reinforce compliance Continue Xifaxan (2) Anemia Current Visit: Yes Status: Chronic Assessment and plan: Possible acute blood loss anemia, consider possible GI bleed upper versus lower Protonix IV, IV fluids, hold Lasix, Hemoccult was positive, there is no active bleeding at the moment Monitor CBC, consider transfusions We will consult GI on Wednesday as there is no coverage over the weekend, will consider consulting surgery if there is evidence of active bleeding Qualifiers: Anemia type: unspecified type Qualified Code(s): D64.9 - Anemia, unspecified (3) HCC (hepatocellular carcinoma) Current Visit: No Status: Chronic Assessment and plan: Follow up as an outpatient with oncology, hold sorafenib until outpatient evaluation (4) Essential tremor Current Visit: No Status: Acute (5) HTN (hypertension) Current Visit: Yes Status: Chronic Assessment and plan: Hold Lasix Qualifiers: Hypertension type: essential hypertension Qualified Code(s): I10 - Essential (primary) hypertension (6) Hyponatremia Current Visit: Yes Status: Acute - Subjective Interval history: less confused , almost at baseline, denies CP or SOB, no fever, has been having many BMs. No dysuria, has mild abdominal discomfort - Constitutional Vitals: Temp Pulse Resp BP Pulse Ox 97.7 F 105 20 113/61 98 08/28/17 07:10 08/28/17 07:10 08/28/17 07:10 08/28/17 07:10 08/28/17 07:10 General appearance: Present: cooperative, A&O X 3, pleasant, no acute distress, underweight, answers questions appropriately - Head Head exam: Present: atraumatic, normocephalic - Eye Eye exam: Present: PERRL, conjuntiva pink, sclera anicteric Pupils: Present: PERRL - Neck Neck exam general surgery: Present: supple, trachea midline. Absent: lymphadenopathy - Respiratory Respiratory exam: Present: CTAB. Absent: accessory muscle use, rales, rhonchi, wheezes - Cardiovascular Cardiovascular exam: Present: RRR, +S1, +S2. Absent: diastolic murmur, gallop, rubs, systolic murmur - GI/Abdominal GI/Abdominal exam: Present: distended, normal bowel sounds, soft, no peritoneal signs. Absent: tenderness - Extremities Exam Extremities exam: Present: warm, radial pulses palpable and symmetrical. Absent : calf tenderness, cyanotic, pedal edema - Neurological Exam Neurological exam: Present: CN II-XII intact, oriented X3, no focal deficits. Absent: pronater drift, facial droop, speech deficit - Skin Skin exam: Present: dry, intact Additional comments: Flapping tremors evidenced Internal Medicine: Result - Labs CBC & Chem 7: 08/28/17 03:58 08/28/17 03:58 Labs: Short CBC 08/28/17 Range/Units 03:58 WBC 10.3 (4.3-11.1) K/mcL Hgb 8.5 L (12.9-16.9) g/dL Hct 26.0 L (37.5-50.1) % Plt Count 97 L (140-400) K/mcL Neutrophils # 8.0 (1.6-8.9) K/mcL BMP 08/28/17 03:58 Sodium 130 L Potassium 3.4 L Chloride 98 Carbon Dioxide 20 BUN 24 Creatinine 1.09 Glucose 156 H Calcium 7.6 L Liver Function 08/28/17 Range/Units 03:58 Total Bilirubin 1.5 H (0.2-1.2) mg/dL AST 78 H (5-34) Units/L ALT 73 H (0-55) Units/L Alkaline Phosphatase 800 H (38-126) Units/L Albumin 2.2 L (3.5-5.0) g/dL - ABG Interpretation ABG results: PT/INR, D-dimer PT 20.9 Seconds (9.4-12.1) H 08/28/17 03:58 - VTE Documentation of Mechanical Device: Intermittent pneumatic compression device Consult Discharge Plan - Plan Referrals: NONE,PCP [Non-Partnered Physician] -
[2017-08-28] MEDS ORDERED: Lactulose Oral Soln 20 GM/30 ML UDC PO SCH (15:00)
[2017-08-28 15:28] LABS: Hematocrit 25.8 % (37.5-50.1); Hemoglobin 8.6 g/dL (12.9-16.9)
[2017-08-28] MEDS: *HR* OxyCODONE Immed Rel 5 MG TABLET PO PRN (19:18)
[2017-08-28 22:36] LABS: Hematocrit 23.8 % (37.5-50.1); Hemoglobin 7.9 g/dL (12.9-16.9); Immature Platelets 4.2 % (1.1-6.1); Mean Corpuscular HGB Conc 33.2 g/dL (31.6-35.5); Mean Corpuscular Hemoglobin 26.1 pg (28.0-33.3); Mean Corpuscular Volume 78.5 fL (83.0-100.0); Mean Platelet Volume 9.3 fL (9.4-12.4); Red Blood Count 3.03 M/mcL (4.19-5.50); Red Cell Distribution Width 18.8 % (11.5-14.5)
[2017-08-29 05:18] LABS: Hematocrit 26.2 % (37.5-50.1); Hemoglobin 8.7 g/dL (12.9-16.9); Immature Platelets 3.7 % (1.1-6.1); Mean Corpuscular HGB Conc 33.2 g/dL (31.6-35.5); Mean Corpuscular Hemoglobin 26.4 pg (28.0-33.3); Mean Corpuscular Volume 79.4 fL (83.0-100.0); Mean Platelet Volume 10.4 fL (9.4-12.4); Red Blood Count 3.3 M/mcL (4.19-5.50); Red Cell Distribution Width 19.4 % (11.5-14.5)
[2017-08-29 05:31] LABS: BUN/Creatinine Ratio 24 (6-26); Blood Urea Nitrogen 24 mg/dL (8-26); Calcium 7.3 mg/dL (8.6-10.8); Carbon Dioxide 19 mEq/L (19-29); Chloride 97 mEq/L (98-109); Glucose 158 mg/dL (70-99); Osmolality,Calculated 267 (280-300); Sodium 125 mEq/L (136-145); eGFR For African Americans > 60 (> 60); eGFR For Non-African Americans > 60 (> 60)
[2017-08-29] MEDS: Lactulose Oral Soln 20 GM/30 ML UDC PO SCH ×3 (08:17→22:20)
[2017-08-29] MEDS: Zinc Sulfate 220 MG CAPSULE PO SCH (08:17)
[2017-08-29] MEDS: Iron Polysaccharide Complex 150 MG CAPSULE PO SCH ×2 (08:17→22:22)
[2017-08-29] MEDS: Multivit/Ca/Min/Fe/FA 1 TAB TABLET PO SCH (08:17)
[2017-08-29] MEDS: Cyanocobalamin (B-12) 1,000 MCG TABLET PO SCH (08:17)
[2017-08-29] MEDS: Nicotine 14 MG PATCH.TD24 TD SCH (08:18)
[2017-08-29] MEDS: Insulin LISPRO 300 UNITS/3 ML VIAL SQ SCH ×4 (08:19→22:18)
[2017-08-29] MEDS: Pantoprazole 40 MG VIAL IVP SCH ×2 (08:25→22:20)
[2017-08-29] MEDS: *HR* OxyCODONE Immed Rel 5 MG TABLET PO PRN (09:19)
--- NOTE | 2017-08-29 09:32 | Internal Med Progress Note ---
Date of Encounter: 08/29/17 Time of Encounter: 09:30 - Assessment and plan (1) Hepatic encephalopathy Current Visit: Yes Status: Resolved Assessment and plan: Acute hepatic encephalopathy due to cirrhosis and hepatocellular carcinoma Continue lactulose, reinforce compliance Continue Xifaxan (2) Anemia Current Visit: Yes Status: Chronic Assessment and plan: Possible acute blood loss anemia, consider possible GI bleed upper versus lower Protonix IV, discontinue IV fluids, resume Lasix, Hemoccult was positive, there is no active bleeding at the moment Monitor CBC, consider transfusions We will consult GI on Wednesday as there is no coverage over the weekend, will consider consulting surgery if there is evidence of active bleeding Qualifiers: Anemia type: unspecified type Qualified Code(s): D64.9 - Anemia, unspecified (3) HCC (hepatocellular carcinoma) Current Visit: No Status: Chronic Assessment and plan: Follow up as an outpatient with oncology, hold sorafenib until outpatient evaluation (4) Essential tremor Current Visit: No Status: Acute (5) HTN (hypertension) Current Visit: Yes Status: Chronic Assessment and plan: Hold Lasix Qualifiers: Hypertension type: essential hypertension Qualified Code(s): I10 - Essential (primary) hypertension (6) Hyponatremia Current Visit: Yes Status: Acute Assessment and plan: Continue to monitor - Subjective Interval history: Mentation back to baseline , denies CP or SOB, no fever, has been having many BMs. No dysuria, has mild abdominal discomfort/distention - Constitutional Vitals: Temp Pulse Resp BP Pulse Ox 98.2 F 63 17 120/63 96 08/29/17 07:32 08/29/17 07:32 08/29/17 07:32 08/29/17 07:32 08/29/17 07:32 General appearance: Present: cooperative, A&O X 3, pleasant, no acute distress, underweight, answers questions appropriately Exam: - Head Head exam: Present: atraumatic, normocephalic - Eye Eye exam: Present: PERRL, conjuntiva pink, sclera anicteric Pupils: Present: PERRL - Neck Neck exam general surgery: Present: supple, trachea midline. Absent: lymphadenopathy - Respiratory Respiratory exam: Present: CTAB. Absent: accessory muscle use, rales, rhonchi, wheezes - Cardiovascular Cardiovascular exam: Present: RRR, +S1, +S2. Absent: diastolic murmur, gallop, rubs, systolic murmur - GI/Abdominal GI/Abdominal exam: Present: distended, normal bowel sounds, soft, no peritoneal signs. Absent: tenderness Ascites noticed - Extremities Exam Extremities exam: Present: warm, radial pulses palpable and symmetrical. Absent : calf tenderness, cyanotic, pedal edema - Neurological Exam Neurological exam: Present: CN II-XII intact, oriented X3, no focal deficits. Absent: pronater drift, facial droop, speech deficit - Skin Skin exam: Present: dry, intact Additional comments: No Flapping tremors evidenced Internal Medicine: Result - Labs CBC & Chem 7: 08/29/17 05:08 08/29/17 05:08 Labs: Short CBC 08/28/17 08/28/17 08/29/17 Range/Units 15:14 22:28 05:08 WBC 10.4 11.4 H (4.3-11.1) K/mcL Hgb 8.6 L 7.9 L 8.7 L (12.9-16.9) g/dL Hct 25.8 L 23.8 L 26.2 L (37.5-50.1) % Plt Count 88 L 90 L (140-400) K/mcL [facility] 08/29/17 05:08 Sodium 125 L Potassium 4.0 Chloride 97 L Carbon Dioxide 19 BUN 24 Creatinine 1.02 Glucose 158 H Calcium 7.3 L - ABG Interpretation ABG results: PT/INR, D-dimer PT 20.9 Seconds (9.4-12.1) H 08/28/17 03:58 - VTE Documentation of Mechanical Device: Intermittent pneumatic compression device Consult Discharge Plan - Plan Referrals: NONE,PCP [Non-Partnered Physician] -
[2017-08-29] MEDS: Furosemide 40 MG TABLET PO SCH ×2 (15:22→22:21)
[2017-08-30 02:10] LABS: Hematocrit 23.9 % (37.5-50.1); Mean Corpuscular HGB Conc 33.5 g/dL (31.6-35.5); Mean Corpuscular Hemoglobin 26.1 pg (28.0-33.3); Mean Corpuscular Volume 77.9 fL (83.0-100.0); Mean Platelet Volume 10.5 fL (9.4-12.4); Platelet Count 115 K/mcL (140-400); Red Blood Count 3.07 M/mcL (4.19-5.50); Red Cell Distribution Width 19.2 % (11.5-14.5)
[2017-08-30 02:30] LABS: BUN/Creatinine Ratio 32 (6-26); Blood Urea Nitrogen 26 mg/dL (8-26); Calcium 7.3 mg/dL (8.6-10.8); Carbon Dioxide 17 mEq/L (19-29); Chloride 96 mEq/L (98-109); Glucose 143 mg/dL (70-99); Osmolality,Calculated 263 (280-300); Potassium 4.1 mEq/L (3.5-4.5); Sodium 123 mEq/L (136-145); eGFR For African Americans > 60 (> 60); eGFR For Non-African Americans > 60 (> 60)
--- NOTE | 2017-08-30 09:15 | Internal Med Progress Note ---
Date of Encounter: 08/30/17 Time of Encounter: 09:11 - Assessment and plan (1) Hepatic encephalopathy Current Visit: Yes Status: Resolved Assessment and plan: Acute hepatic encephalopathy due to cirrhosis and hepatocellular carcinoma Continue lactulose, reinforce compliance Continue Xifaxan (2) Anemia Current Visit: Yes Status: Chronic Assessment and plan: Possible acute blood loss anemia, consider possible GI bleed upper versus lower Protonix IV, discontinue IV fluids, resume Lasix, Hemoccult was positive, there is no active bleeding at the moment Monitor CBC, consider transfusions Re-consult GI to consider endoscopy Keep nothing by mouth for now, resume diet if no plan for EGD today is considered Qualifiers: Anemia type: unspecified type Qualified Code(s): D64.9 - Anemia, unspecified (3) HCC (hepatocellular carcinoma) Current Visit: No Status: Chronic Assessment and plan: Follow up as an outpatient with oncology, hold sorafenib until outpatient evaluation (4) Essential tremor Current Visit: No Status: Acute (5) HTN (hypertension) Current Visit: Yes Status: Chronic Assessment and plan: Stable Qualifiers: Hypertension type: essential hypertension Qualified Code(s): I10 - Essential (primary) hypertension (6) Hyponatremia Current Visit: Yes Status: Acute Assessment and plan: Likely related to ascites/volume overload May need a fluid restriction Continue to monitor - Subjective Interval history: More confused , unable to provide history due to mental status. Appears to be in no distress - Constitutional Vitals: Temp Pulse Resp BP Pulse Ox 98.0 F 98 17 119/73 98 08/30/17 07:41 08/30/17 07:41 08/30/17 07:41 08/30/17 07:41 08/30/17 07:41 General appearance: Present: cooperative, A&O X 2, pleasant, no acute distress, underweight, answers questions appropriately - Head Head exam: Present: atraumatic, normocephalic - Eye Eye exam: Present: PERRL, conjuntiva pink, sclera anicteric Pupils: Present: PERRL - Neck Neck exam general surgery: Present: supple, trachea midline. Absent: lymphadenopathy - Respiratory Respiratory exam: Present: decreased breath sounds, CTAB. Absent: accessory muscle use, rales, rhonchi, wheezes - Cardiovascular Cardiovascular exam: Present: RRR, +S1, +S2. Absent: diastolic murmur, gallop, rubs, systolic murmur - GI/Abdominal GI/Abdominal exam: Present: distended (Ascites noticed), normal bowel sounds, soft, no peritoneal signs. Absent: tenderness - Extremities Exam Extremities exam: Present: warm, radial pulses palpable and symmetrical. Absent : calf tenderness, cyanotic, pedal edema - Neurological Exam Neurological exam: Present: CN II-XII intact, no focal deficits. Absent: oriented X3, pronater drift, facial droop, speech deficit - Skin Skin exam: Present: dry, intact Internal Medicine: Result - Labs CBC & Chem 7: 08/30/17 01:35 08/30/17 01:35 Labs: Short CBC 08/30/17 Range/Units 01:35 WBC 11.1 (4.3-11.1) K/mcL Hgb 8.0 L (12.9-16.9) g/dL Hct 23.9 L (37.5-50.1) % Plt Count 115 L (140-400) K/mcL [facility] 08/30/17 01:35 Sodium 123 L Potassium 4.1 Chloride 96 L Carbon Dioxide 17 L BUN 26 Creatinine 0.82 Glucose 143 H Calcium 7.3 L - ABG Interpretation ABG results: PT/INR, D-dimer PT 20.9 Seconds (9.4-12.1) H 08/28/17 03:58 - VTE Documentation of Mechanical Device: Intermittent pneumatic compression device Consult Discharge Plan - Plan Referrals: Raymundo Escobedo DO [Primary Care Provider] -
--- NOTE | 2017-08-30 10:18 | Gastroenterology Consult Note ---
<Lynda Burgess - Last Filed: 08/30/17 10:09> Date of Encounter: 08/30/17 Time of Encounter: 10:09 - Assessment and plan (1) Anemia Current Visit: Yes Status: Chronic Assessment and plan: Hemoglobin 8.5 on 08/28/17 Per review of chart, previous hemoglobin was 11 on 08/12/17. Further review of records indicates that his hemoglobin is chronically between 8-9 with previosu low of 6.5. Does have prior history of banding of grade I varices in 10/2016 which also demonstrated portal hypertensive gastropathy Fecal occult blood is positive, no current signs of active bleeding. Given current mental status and no concerns for active bleed, would recommend waiting to perform EGD until patient is more alert and responsive. Qualifiers: Anemia type: unspecified type Qualified Code(s): D64.9 - Anemia, unspecified - Time Spent With Patient Total time spent is greater than 50% in coordination of care (as documented) at patient's floor/unit and/or counseling patient: GI History of Present Illness - Data of Consult Patient: known to practice within the last 3 years Consult date: 08/30/17 Requesting Physician: Oneil Sage - Consult Narrative Reason for consult: anemia History of present illness: Mr. Moralez is a 57 year old male with past medical history of cirrhosis secondary to alcohol abuse, heptaocellular carcinoma s/p chemotherapy who we have been asked to see in consult for concerns of anemia. Patient is currently encephalopathic and is unable to provide much history, history is gathered from chart review and from his who is at bedside. Patient was admitted for tremors secondary to chemotherapy treatment, denies any change in mental status at home. She does report previous EGD by Dr. Maciel which showed varices and states that there was prior banding done. states that prior to admission that there was no change in stool, no blackening of stool, no bright red blood per rectum. She states eh was not complaining of any abdominal pain prior to admission. States that his hemoglobin at home is around 8-9 chronically, does have history f receiving blood transfusion about 3 years ago and has not required any since that time. During this hospitalization, he was found to be fecal occult blood positive. EGD: 10/201616 Grade I varices with 2 bands placed, portal hypertensive gastropath Past Med Surg Social Fam HX - Past Medical History Medical history: cancer, cirrhosis, GERD, hyperlipidemia, hypertension, other Psychiatric history: no psych history - Past Surgical History Surgical History: cholecystectomy, orthopedic, other - Social History Smoking Status: Former smoker Packs per day: 1/2 PPD Smokeless Tobacco Status: No Alcohol use: none Drug use: none - Family History Brother History Unknown: Yes Race: Family Member Ethnicity: Non- Living Status: Still Living Hx Family Medical Disorders: No Sister History Unknown: Yes Race: Family Member Ethnicity: Non- Living Status: Still Living Hx Family Endocrine Disorder: Yes (DM) Mother History Unknown: Yes Race: Family Member Ethnicity: Non- Living Status: Age at : 72 Cause of : HD Hx Family Cardiac Disorders: Yes (HD, HTN) Hx Family Neurologic Disorders: Yes (Alzheimer's disease) Father History Unknown: Yes Race: Family Member Ethnicity: Non- Living Status: Age at : 68 Cause of : Lung cancer Hx Family Cardiac Disorders: Yes (HD) Hx Family Respiratory Disorders: Yes (only 1 lung due to lung cancer) Hx Family Cancer: Yes (Lung, Jaw) Hx Family GI Disorders: Yes (Cirrhosis) ROS unobtainable: due to mental status Review of Systems: per at bediside - Gastrointestinal Gastrointestinal: Absent: abdominal pain, coffee ground emesis, diarrhea, hematemesis, hematochezia, melena - Constitutional Constitutional: no fever(s) - Cardiovascular Cardiovascular ROS: Absent: chest pain - Respiratory Respiratory IM: Absent: cough - Genitourinary Genitourinary: Absent: Urinary frequency - Neurological ROS Neurological GI: Present: tremor(s) - Musculoskeletal Musculoskeletal ROS GI: Absent: joint swelling - Integumentary Integumentary GI: Absent: rash - Constitutional Vitals: Temp Pulse Resp BP Pulse Ox 98.0 F 98 17 119/73 98 08/30/17 07:41 08/30/17 07:41 08/30/17 07:41 08/30/17 07:41 08/30/17 07:41 General appearance: Present: cooperative, no acute distress - Head Head exam: Present: atraumatic - Eye Eye exam: Present: normal appearance. Absent: scleral icterus - ENT ENT exam: Present: mucous membranes moist - Neck Neck exam general surgery: Present: supple - Respiratory Respiratory exam: Present: decreased breath sounds, CTAB. Absent: rales, rhonchi, stridor - Cardiovascular Cardiovascular exam: Present: RRR, +S1, +S2. Absent: diastolic murmur, systolic murmur - GI/Abdominal GI/Abdominal exam: Present: distended (ascites present), normal bowel sounds, soft. Absent: guarding, hepatomegaly, rigid, tenderness Results - Labs CBC & Chem 7: 08/30/17 01:35 08/30/17 01:35 Labs: Last Result Calcium 7.3 mg/dL (8.6-10.8) L 08/30/17 01:35 Iron 27 mcg/dL (65-175) L 08/27/17 15:34 % Saturation 10 % (20-55) L 08/27/17 15:34 Transferrin 185 mg/dL (174-364) 08/27/17 15:34 Troponin I 0.02 ng/mL (0-0.03) 08/27/17 12:26 Triglycerides 114 mg/dL (< 150) 08/28/17 03:58 Stool Occult Blood Positive (Negative) A 08/27/17 21:38 Urine Opiates Screen Negative ng/mL ([id number]=[id number]) 08/27/17 12:32 Entire Visit Hgb 8.0 g/dL (12.9-16.9) L 08/30/17 01:35 Hct 23.9 % (37.5-50.1) L 08/30/17 01:35 PT 20.9 Seconds (9.4-12.1) H 08/28/17 03:58 Total Bilirubin 1.5 mg/dL (0.2-1.2) H 08/28/17 03:58 AST 78 Units/L (5-34) H 08/28/17 03:58 ALT 73 Units/L (0-55) H 08/28/17 03:58 Ammonia 69 mcmol/L (18-72) 08/28/17 03:58 - ABG ABG results: PT/INR, D-dimer PT 20.9 Seconds (9.4-12.1) H 08/28/17 03:58 Consult Discharge Plan - Plan Referrals: Raymundo Escobedo DO [Primary Care Provider] - <Julio Maciel - Last Filed: 08/30/17 17:42> Date of Encounter: 08/30/17 Time of Encounter: 18:00 - Time Spent With Patient Total time spent is greater than 50% in coordination of care (as documented) at patient's floor/unit and/or counseling patient: GI History of Present Illness - Data of Consult Requesting Physician: Oneil Sage - Consult Narrative History of present illness: Mr. Moralez is a 57 year old male - Constitutional Vitals: Temp Pulse Resp BP Pulse Ox 98.2 F 99 17 115/73 98 08/30/17 15:38 08/30/17 15:38 08/30/17 15:38 08/30/17 15:38 08/30/17 15:38 Results - Labs CBC & Chem 7: 08/30/17 01:35 08/30/17 01:35 Labs: Last Result Calcium 7.3 mg/dL (8.6-10.8) L 08/30/17 01:35 Iron 27 mcg/dL (65-175) L 08/27/17 15:34 % Saturation 10 % (20-55) L 08/27/17 15:34 Transferrin 185 mg/dL (174-364) 08/27/17 15:34 Troponin I 0.02 ng/mL (0-0.03) 08/27/17 12:26 Triglycerides 114 mg/dL (< 150) 08/28/17 03:58 Stool Occult Blood Positive (Negative) A 08/27/17 21:38 Urine Opiates Screen Negative ng/mL (Rbuefo=242) 08/27/17 12:32 Entire Visit Hgb 8.0 g/dL (12.9-16.9) L 08/30/17 01:35 Hct 23.9 % (37.5-50.1) L 08/30/17 01:35 PT 20.9 Seconds (9.4-12.1) H 08/28/17 03:58 Total Bilirubin 1.5 mg/dL (0.2-1.2) H 08/28/17 03:58 AST 78 Units/L (5-34) H 08/28/17 03:58 ALT 73 Units/L (0-55) H 08/28/17 03:58 Ammonia 69 mcmol/L (18-72) 08/28/17 03:58 - ABG ABG results: PT/INR, D-dimer PT 20.9 Seconds (9.4-12.1) H 08/28/17 03:58 - Attending Attestation I examined this patient and my medical decision-making was reviewed with the Resident Physician. I agree with the documented findings, disposition and treatment plan as described except to the extent set forth below. Pt with cirrhosis/enceohalopathy: Adjust dose of lactulose, cont rifaximin
[2017-08-30] MEDS: Insulin LISPRO 300 UNITS/3 ML VIAL SQ SCH ×4 (11:04→22:23)
[2017-08-30] MEDS: Lactulose Oral Soln 20 GM/30 ML UDC PO SCH ×4 (11:05→22:24)
[2017-08-30] MEDS: Zinc Sulfate 220 MG CAPSULE PO SCH (13:09)
[2017-08-30] MEDS: Cyanocobalamin (B-12) 1,000 MCG TABLET PO SCH (13:10)
[2017-08-30] MEDS: Multivit/Ca/Min/Fe/FA 1 TAB TABLET PO SCH (13:10)
[2017-08-30] MEDS: Furosemide 40 MG TABLET PO SCH ×3 (13:10→22:20)
[2017-08-30] MEDS: Nicotine 14 MG PATCH.TD24 TD SCH (13:15)
[2017-08-30] MEDS: Pantoprazole 40 MG VIAL IVP SCH ×2 (13:17→22:20)
[2017-08-30] MEDS: Iron Polysaccharide Complex 150 MG CAPSULE PO SCH ×2 (13:20→22:19)
[2017-08-30] MEDS ORDERED: Lactulose Oral Soln 20 GM/30 ML UDC PO ONE (13:38)
[2017-08-30] MEDS: *HR* FentaNYL PATCH 12 MCG PATCH TD SCH (16:05)
[2017-08-30] MEDS: *HR* OxyCODONE Immed Rel 5 MG TABLET PO PRN (22:20)
[2017-08-31 05:55] LABS: Mean Corpuscular Volume 78.4 fL (83.0-100.0)
[2017-08-31 05:57] LABS: Basophils % 0.2 %; Eosinophils % 0.1 %; Hematocrit 24.3 % (37.5-50.1); Immature Platelets 5.2 % (1.1-6.1); Lymphocytes % 8.7 %; Mean Corpuscular HGB Conc 32.9 g/dL (31.6-35.5); Mean Corpuscular Hemoglobin 25.8 pg (28.0-33.3); Mean Platelet Volume 10.1 fL (9.4-12.4); Monocytes # 1.3 K/mcL (0.0-1.3); Monocytes % 11.8 %; Neutrophils # 8.5 K/mcL (1.6-8.9); Nucleated Red Blood Cells 0.8 /100 WBC (0); Red Cell Distribution Width 19.9 % (11.5-14.5); Segmented Neutrophils % 77.2 %
[2017-08-31 05:59] LABS: Platelet Count 87 K/mcL (140-400)
[2017-08-31 06:11] LABS: Alanine Aminotransferase 107 Units/L (0-55); Albumin/Globulin Ratio 0.5 (1.1-2.2); Alkaline Phosphatase 871 Units/L (38-126); Aspartate Amino Transferase 114 Units/L (5-34); BUN/Creatinine Ratio 33 (6-26); Bilirubin,Total 1.4 mg/dL (0.2-1.2); Blood Urea Nitrogen 27 mg/dL (8-26); Calcium 7.4 mg/dL (8.6-10.8); Carbon Dioxide 21 mEq/L (19-29); Chloride 101 mEq/L (98-109); Globulin 3.7 g/dL (2.4-3.5); Glucose 165 mg/dL (70-99); Osmolality,Calculated 279 (280-300); Potassium 4.1 mEq/L (3.5-4.5); Total Protein 5.7 g/dL (6.0-8.3); eGFR For African Americans > 60 (> 60); eGFR For Non-African Americans > 60 (> 60)
[2017-08-31 06:14] LABS: Sodium 130 mEq/L (136-145)
[2017-08-31] MEDS: Lactulose Oral Soln 20 GM/30 ML UDC PO SCH ×3 (08:56→20:44)
[2017-08-31] MEDS: Multivit/Ca/Min/Fe/FA 1 TAB TABLET PO SCH (08:56)
[2017-08-31] MEDS: Cyanocobalamin (B-12) 1,000 MCG TABLET PO SCH (08:56)
[2017-08-31] MEDS: Furosemide 40 MG TABLET PO SCH ×2 (08:56→15:48)
[2017-08-31] MEDS: Iron Polysaccharide Complex 150 MG CAPSULE PO SCH ×2 (08:56→20:43)
[2017-08-31] MEDS: Zinc Sulfate 220 MG CAPSULE PO SCH (08:56)
[2017-08-31] MEDS: Insulin LISPRO 300 UNITS/3 ML VIAL SQ SCH ×4 (08:57→20:59)
[2017-08-31] MEDS: Pantoprazole 40 MG VIAL IVP SCH ×2 (08:57→20:44)
[2017-08-31] MEDS: Nicotine 14 MG PATCH.TD24 TD SCH (08:57)
[2017-08-31] MEDS ORDERED: *HR* FentaNYL PATCH 12 MCG PATCH TD SCH (09:00)
[2017-08-31] MEDS: *HR* OxyCODONE Immed Rel 5 MG TABLET PO PRN ×2 (09:08→20:43)
--- NOTE | 2017-08-31 10:24 | Internal Med Progress Note ---
Date of Encounter: 08/31/17 Time of Encounter: 10:23 - Assessment and plan (1) Hepatic encephalopathy Current Visit: Yes Status: Resolved Assessment and plan: Acute hepatic encephalopathy due to cirrhosis and hepatocellular carcinoma Continue lactulose, reinforce compliance Continue Xifaxan (2) Anemia Current Visit: Yes Status: Chronic Assessment and plan: Possible acute blood loss anemia, consider possible GI bleed upper versus lower Protonix IV, discontinued IV fluids, decrease dose of Lasix, Hemoccult was positive, there is no active bleeding at the moment Monitor CBC, consider transfusions Re-consulted GI to consider endoscopy Protonix IV Keep nothing by mouth at midnight, resume diet if no plan for EGD today is considered Qualifiers: Anemia type: unspecified type Qualified Code(s): D64.9 - Anemia, unspecified (3) HCC (hepatocellular carcinoma) Current Visit: No Status: Chronic Assessment and plan: Follow up as an outpatient with oncology, hold sorafenib until outpatient evaluation (4) Essential tremor Current Visit: No Status: Acute (5) HTN (hypertension) Current Visit: Yes Status: Chronic Assessment and plan: Stable Qualifiers: Hypertension type: essential hypertension Qualified Code(s): I10 - Essential (primary) hypertension (6) Hyponatremia Current Visit: Yes Status: Acute Assessment and plan: Likely related to ascites/volume overload Improved on fluid restriction Continue to monitor - Subjective Interval history: Less confused , denies, pain , very somnolent but improved from yesterday. Denies CP or SOB, no abdominal pain. No fever, no dysria. Appears to be in no distress - Constitutional Vitals: Temp Pulse Resp BP Pulse Ox 97.6 F 101 15 124/76 98 08/31/17 07:18 08/31/17 07:18 08/31/17 07:18 08/31/17 07:18 08/31/17 07:18 General appearance: Present: cooperative, A&O X 2 (Disoriented in time), pleasant, no acute distress, underweight, answers questions appropriately - Head Head exam: Present: atraumatic, normocephalic - Eye Eye exam: Present: PERRL, conjuntiva pink, sclera anicteric Pupils: Present: PERRL - Neck Neck exam general surgery: Present: supple, trachea midline. Absent: lymphadenopathy - Respiratory Respiratory exam: Present: decreased breath sounds, CTAB. Absent: accessory muscle use, rales, rhonchi, wheezes - Cardiovascular Cardiovascular exam: Present: RRR, +S1, +S2. Absent: diastolic murmur, gallop, rubs, systolic murmur - GI/Abdominal GI/Abdominal exam: Present: distended (Ascites noticed), normal bowel sounds, soft, no peritoneal signs. Absent: tenderness - Extremities Exam Extremities exam: Present: warm, radial pulses palpable and symmetrical. Absent : calf tenderness, cyanotic, pedal edema - Neurological Exam Neurological exam: Present: CN II-XII intact, no focal deficits. Absent: oriented X3, pronater drift, facial droop, speech deficit - Skin Skin exam: Present: dry, intact Internal Medicine: Result - Labs CBC & Chem 7: 08/31/17 05:19 08/31/17 05:19 Labs: Short CBC 08/31/17 Range/Units 05:19 WBC 11.0 (4.3-11.1) K/mcL Hgb 8.0 L (12.9-16.9) g/dL Hct 24.3 L (37.5-50.1) % Plt Count 87 L (140-400) K/mcL Neutrophils # 8.5 (1.6-8.9) K/mcL BMP 08/31/17 05:19 Sodium 130 L D Potassium 4.1 Chloride 101 Carbon Dioxide 21 BUN 27 H Creatinine 0.83 Glucose 165 H Calcium 7.4 L Liver Function 08/31/17 Range/Units 05:19 Total Bilirubin 1.4 H (0.2-1.2) mg/dL AST 114 H (5-34) Units/L ALT 107 H (0-55) Units/L Alkaline Phosphatase 871 H (38-126) Units/L Albumin 2.0 L (3.5-5.0) g/dL - ABG Interpretation ABG results: PT/INR, D-dimer PT 20.9 Seconds (9.4-12.1) H 08/28/17 03:58 - VTE Documentation of Mechanical Device: Intermittent pneumatic compression device Consult Discharge Plan - Plan Referrals: Raymundo Escobedo DO [Primary Care Provider] -
--- NOTE | 2017-08-31 14:03 | Palliative - Consult Note ---
Date of Encounter: 08/31/17 Time of Encounter: 14:00 - Assessment and Plan (1) Cancer associated pain Current Visit: Yes Status: Acute Assessment and plan: Fentanyl patch has been discontinued. Will order Lidocaine patch, as states this was helpful for his lower back pain. Continue Oxycodone as well, currently at 5mg, this could be increased if the 5mg does not give him enough relief. (2) Counseling regarding advanced care planning and goals of care Current Visit: Yes Status: Acute Assessment and plan: Discussed at length, pt unable to participate in discussion r/t lethargy. He completed his advanced directives in 2015 and these are present on his medical record. It is handwritten on his POA that he desires to remain a "full code and wants short term intubation unless there is no hope of meaningful life". We discussed his terminal diagnosis and that CPR and other aggressive measures of resuscitation may cause him pain and trauma, and that pt with metastatic cancer typically do not do well with these heroic measures, and that we are resuscitating to return to a state of terminal disease. verbalized understanding. I encouraged her to have another discussion with patient when/ if his mental state returns to baseline. Discussed my concern of him returning home, but convinced he will improve enough. Discussed short term rehab, which she is not interested in at this time. She would however, consider home health. D/W social work and they will speak with her today or tomorrow. Will continue to follow. (3) Hepatic encephalopathy Current Visit: Yes Status: Resolved (4) HCC (hepatocellular carcinoma) Current Visit: No Status: Chronic Palliative-CN HPI - Data of Consult Consult date: 08/31/17 Requesting Physician: Oneil Sage Primary Care Provider: Raymundo Escobedo, - Consult Narrative History of present illness: Mr. Moralez is a 57 year old male with a history of hepatocellular carcinoma with skeletal metastasis, cirrhosis, GERD, HLD, HTN, diabetes, currently under treatment with [facility], who was admitted with altered mental status. He was at [facility] and found to be "shaky" with AMS and was recommended he come to ER for eval. His care was recently transferred here from oncologist in [place], as they no longer desired to make the commute. Ammonia level was 140 upon admission, and most recently down to 69. at bedside states he was began on Fentanyl patch last week, and she also thinks that it made him to lethargic. She stated she felt that was her fault, when she discussed pain patch, she meant the "lidocaine patch", and says she didn't communicate this to them. She had taken the Fentanyl patch off him yesterday, and it was discontinued by hospitalist this am. GI consultation has been obtained r/t anemia, their consult notes were reviewed. Upon my visit, , Erica is at bedside. PT is in room working with pt. Patient having difficulties following commands, however, he is trying to participate. He denies any pain at this time. Intake is poor, but states that he is trying. She states that his current chemotherapy regimen has been stopped, and they plan to begin "another regimen" for his cancer that will begin with next visit at cancer center. He appears weak, is able to stand with assistance, but has difficult getting up and down off the bed. CC: Oneli Sage Past Med Surg Social Fam HX - Past Medical History Medical history: cancer, cirrhosis, GERD, hyperlipidemia, hypertension, other Psychiatric history: no psych history - Past Surgical History Surgical History: cholecystectomy, orthopedic, other - Social History Smoking Status: Former smoker Packs per day: 1/2 PPD Smokeless Tobacco Status: No Alcohol use: none Drug use: none - Family History Brother History Unknown: Yes Race: Family Member Ethnicity: Non- Living Status: Still Living Hx Family Medical Disorders: No Sister History Unknown: Yes Race: Family Member Ethnicity: Non- Living Status: Still Living Hx Family Endocrine Disorder: Yes (DM) Mother History Unknown: Yes Race: Family Member Ethnicity: Non- Living Status: Age at : 72 Cause of : HD Hx Family Cardiac Disorders: Yes (HD, HTN) Hx Family Neurologic Disorders: Yes (Alzheimer's disease) Father History Unknown: Yes Race: Family Member Ethnicity: Non- Living Status: Age at : 68 Cause of : Lung cancer Hx Family Cardiac Disorders: Yes (HD) Hx Family Respiratory Disorders: Yes (only 1 lung due to lung cancer) Hx Family Cancer: Yes (Lung, Jaw) Hx Family GI Disorders: Yes (Cirrhosis) Medications and Allergies Atorvastatin [Lipitor] 20 mg PO HS 07/17/15 [History] Cyanocobalamin (Vitamin B-12) [Vitamin B12] 1,000 mcg PO QAM 07/17/15 [History] Furosemide [Lasix] 40 mg PO TID 07/17/15 [History] HydrOXYzine 25 mg PO TID 07/17/15 [History] Lactulose 15 ml PO TID PRN 07/17/15 [History] Multivitamin/Iron/Folic Acid [Centrum Complete Multivit Tab] 1 tab PO QAM [History] Zinc Sulfate 220 mg PO QAM 07/17/15 [History] Insulin ASPART [NovoLOG] 8 - 10 unit SQ TID 11/03/16 [History] Insulin Glargine [Lantus] 36 unit SQ HS 11/03/16 [History] Rifaximin [Xifaxan] 550 mg PO BID 11/03/16 [History] Spironolactone [Aldactone] 50 mg PO DAILY #30 tablet 12/09/16 [Rx] Iron Polysaccharide Complex [Ferrex 150] 100 mg PO BID 06/16/17 [History] Fentanyl [Duragesic] 12 mcg TD Q72H #10 patch.td72 08/12/17 [Rx] Omeprazole [PriLOSEC] 20 mg PO BID 08/12/17 [History] OxyCODONE Immed Rel [Roxicodone 5 MG] 5 mg PO Q4H PRN #120 tablet 08/12/17 [Rx] Atenolol [Tenormin] 25 mg PO Q48H 08/27/17 [History] 3 Allergy/AdvReac Type Severity Reaction Status Date / Time codeine AdvReac Vomiting Verified 08/27/17 10:32 ROS unobtainable: due to mental status Palliative Care-Exam - Constitutional Vitals: Temp Pulse Resp BP Pulse Ox 97.3 F L 106 14 108/69 97 08/31/17 11:07 08/31/17 11:07 08/31/17 11:07 08/31/17 11:07 08/31/17 11:07 General appearance: Present: no acute distress - Head Head Exam: Present: normal inspection, normocephalic - Eye Eye exam: Present: PERRL - Respiratory Respiratory exam: Present: decreased breath sounds, CTAB - Cardiovascular Cardiovascular exam: Present: +S1, +S2 - GI/Abdominal Exam GI/Abdominal exam: Present: distended, soft - Extremities Exam Extremities exam: Present: normal capillary refill, normal inspection - Neurological Exam Additional comments: Awakens when examined and with verbal stimulation. Difficulty answering questions and following commands. Did participate with PT while I was in room, but difficulty following instruction - Psychiatric Psychiatric exam: Present: flat affect - Skin Skin exam: Present: dry, normal color, warm Internal Medicine - CN: Reslt - Labs CBC & Chem 7: 08/31/17 05:19 08/31/17 05:19 Labs: Short CBC 08/31/17 Range/Units 05:19 WBC 11.0 (4.3-11.1) K/mcL Hgb 8.0 L (12.9-16.9) g/dL Hct 24.3 L (37.5-50.1) % Plt Count 87 L (140-400) K/mcL Neutrophils # 8.5 (1.6-8.9) K/mcL BMP 08/31/17 05:19 Sodium 130 L D Potassium 4.1 Chloride 101 Carbon Dioxide 21 BUN 27 H Creatinine 0.83 Glucose 165 H Calcium 7.4 L Liver Function 08/31/17 Range/Units 05:19 Total Bilirubin 1.4 H (0.2-1.2) mg/dL AST 114 H (5-34) Units/L ALT 107 H (0-55) Units/L Alkaline Phosphatase 871 H (38-126) Units/L Albumin 2.0 L (3.5-5.0) g/dL - ABG Interpretation ABG results: PT/INR, D-dimer PT 20.9 Seconds (9.4-12.1) H 08/28/17 03:58 Consult Discharge Plan - Plan Referrals: Raymundo Escobedo DO [Primary Care Provider] - Palliative Quality Palliative Quality: Screen for Code Status: Yes, Screen for Goals of Care: Yes, Screen for Pain: Yes, If Pain Regimen Started, Initiate Bowel Regimen: NA, Screen for Nausea/Vomitting: Yes
[2017-09-01 06:24] LABS: Hematocrit 22.9 % (37.5-50.1); Hemoglobin 7.5 g/dL (12.9-16.9); Immature Platelets 5.3 % (1.1-6.1); Mean Corpuscular HGB Conc 32.8 g/dL (31.6-35.5); Mean Corpuscular Hemoglobin 25.4 pg (28.0-33.3); Mean Corpuscular Volume 77.6 fL (83.0-100.0); Mean Platelet Volume 10.2 fL (9.4-12.4); Red Blood Count 2.95 M/mcL (4.19-5.50); Red Cell Distribution Width 19.9 % (11.5-14.5)
[2017-09-01 06:34] LABS: BUN/Creatinine Ratio 30 (6-26); Blood Urea Nitrogen 27 mg/dL (8-26); Calcium 7.4 mg/dL (8.6-10.8); Carbon Dioxide 22 mEq/L (19-29); Chloride 97 mEq/L (98-109); Glucose 181 mg/dL (70-99); Osmolality,Calculated 272 (280-300); Potassium 4.3 mEq/L (3.5-4.5); Sodium 126 mEq/L (136-145); eGFR For African Americans > 60 (> 60); eGFR For Non-African Americans > 60 (> 60)
[2017-09-01] MEDS: Lactulose Oral Soln 20 GM/30 ML UDC PO SCH ×3 (08:35→22:33)
[2017-09-01] MEDS: Furosemide 40 MG TABLET PO SCH ×2 (08:37→16:48)
[2017-09-01] MEDS: Multivit/Ca/Min/Fe/FA 1 TAB TABLET PO SCH (08:37)
[2017-09-01] MEDS: Insulin LISPRO 300 UNITS/3 ML VIAL SQ SCH ×4 (08:37→22:33)
[2017-09-01] MEDS: Cyanocobalamin (B-12) 1,000 MCG TABLET PO SCH (08:37)
[2017-09-01] MEDS: Zinc Sulfate 220 MG CAPSULE PO SCH (08:37)
[2017-09-01] MEDS: Iron Polysaccharide Complex 150 MG CAPSULE PO SCH ×2 (08:37→22:31)
[2017-09-01] MEDS: Nicotine 14 MG PATCH.TD24 TD SCH (08:38)
[2017-09-01] MEDS: Pantoprazole 40 MG VIAL IVP SCH ×2 (08:38→22:33)
[2017-09-01] MEDS: *HR* OxyCODONE Immed Rel 5 MG TABLET PO PRN ×2 (08:50→16:48)
--- NOTE | 2017-09-01 09:28 | Palliative Progress Note ---
Date of Encounter: 09/01/17 Time of Encounter: 09:15 - Assessment and plan (1) Cancer associated pain Current Visit: Yes Status: Acute Assessment and plan: Continue Lidoderm patch to lower back, and Oxycodone. He only utilized Oxycodone x2 last 24 hours (2) Counseling regarding advanced care planning and goals of care Current Visit: Yes Status: Acute Assessment and plan: continues to state she "blames herself for his condition, and asking for the pain patch". Discussed that if his mental status were related to that medication, we would see improvement with the discontinuation. She is struggling with his current state, stating that he was ambulatory and functioning well on his own, getting out and going places prior to last week. I have asked Jer Luna to meet with her, as she will need durable medical equipment at this point to care for him, and at the minimal will need home health to follow. I told her I do not feel he is safe at this point to be alone , and she stated that she had family that can take turns caring for him. Will continue to follow. (3) Hepatic encephalopathy Current Visit: Yes Status: Resolved (4) HCC (hepatocellular carcinoma) Current Visit: No Status: Chronic - Time Spent With Patient Total time spent is greater than 50% in coordination of care (as documented) at patient's floor/unit and/or counseling patient: 25 - 35 minutes - Subjective Interval history: Patient remains lethargic, oriented to name only. Does c/o headache. Hgb back down to 7.5 this am. at bedside. - Constitutional Vitals: Abnormal lab results WBC 12.2 K/mcL (4.3-11.1) H 09/01/17 05:46 RBC 2.95 M/mcL (4.19-5.50) L 09/01/17 05:46 Hgb 7.5 g/dL (12.9-16.9) L 09/01/17 05:46 Hct 22.9 % (37.5-50.1) L 09/01/17 05:46 MCV 77.6 fL (83.0-100.0) L 09/01/17 05:46 MCH 25.4 pg (28.0-33.3) L 09/01/17 05:46 RDW 19.9 % (11.5-14.5) H 09/01/17 05:46 Plt Count 88 K/mcL (140-400) L 09/01/17 05:46 Nucleated RBCs/100 WBC 0.8 /100 WBC (0) H 08/31/17 05:19 Platelet Estimate Decreased (Normal) L 08/28/17 03:58 Polychromasia 1+ (Not Present) A 08/28/17 03:58 Poikilocytosis 1+ (Not Present) A 08/28/17 03:58 Anisocytosis 2+ (Not Present) A 08/28/17 03:58 Microcytosis Present (Not Present) A 08/28/17 03:58 Macrocytosis Present (Not Present) A 08/28/17 03:58 Schistocytes 1+ (Not Present) A 08/28/17 03:58 PT 20.9 Seconds (9.4-12.1) H 08/28/17 03:58 Sodium 126 mEq/L (136-145) L 09/01/17 05:46 Chloride 97 mEq/L (98-109) L 09/01/17 05:46 BUN 27 mg/dL (8-26) H 09/01/17 05:46 BUN/Creatinine Ratio 30 (6-26) H 09/01/17 05:46 Glucose 181 mg/dL (70-99) H 09/01/17 05:46 POC Glucose 293 (58-89) H 08/31/17 20:22 Hemoglobin A1c 5.8 % (-5.6) H 08/28/17 03:58 Calculated Osmolality 272 (280-300) L 09/01/17 05:46 Calcium 7.4 mg/dL (8.6-10.8) L 09/01/17 05:46 Magnesium 1.3 mg/dL (1.6-2.6) L 08/28/17 03:58 Iron 27 mcg/dL (65-175) L 08/27/17 15:34 % Saturation 10 % (20-55) L 08/27/17 15:34 Total Bilirubin 1.4 mg/dL (0.2-1.2) H 08/31/17 05:19 Direct Bilirubin 0.8 mg/dL (0.0-0.5) H 08/27/17 12:26 AST 114 Units/L (5-34) H 08/31/17 05:19 ALT 107 Units/L (0-55) H 08/31/17 05:19 Alkaline Phosphatase 871 Units/L (38-126) H 08/31/17 05:19 Serum Total Protein 5.7 g/dL (6.0-8.3) L 08/31/17 05:19 Albumin 2.0 g/dL (3.5-5.0) L 08/31/17 05:19 Globulin 3.7 g/dL (2.4-3.5) H 08/31/17 05:19 Albumin/Globulin Ratio 0.5 (1.1-2.2) L 08/31/17 05:19 HDL Cholesterol 6 mg/dL (40-59) L 08/28/17 03:58 Cholesterol/HDL Ratio 13.8 (0-4.9) H 08/28/17 03:58 Stool Occult Blood Positive (Negative) A 08/27/17 21:38 General appearance: Present: no acute distress - Respiratory Respiratory exam: Present: decreased breath sounds, CTAB - Cardiovascular Cardiovascular exam: Present: +S1, +S2 - GI/Abdominal GI/Abdominal exam: Present: distended, soft - Extremities Exam Extremities exam: Present: normal capillary refill, normal inspection - Neurological Exam Additional comments: Lying with eyes closed. Opens eyes when name called. Oriented to name only. Has difficulty following commands - Skin Skin exam: Present: dry, pallor, warm Palliative Quality Palliative Quality: Screen for Code Status: Yes, Screen for Goals of Care: Yes, Screen for Pain: Yes, If Pain Regimen Started, Initiate Bowel Regimen: NA, Screen for Nausea/Vomitting: Yes - Labs CBC & Chem 7: 09/01/17 05:46 09/01/17 05:46 Labs: Laboratory Results - last 24 hr 08/30/17 08/30/17 08/31/17 16:13 20:25 07:20 WBC RBC Hgb Hct MCV MCH MCHC RDW Plt Count MPV Immature Plt Fraction Sodium Potassium Chloride Carbon Dioxide BUN Creatinine Est GFR ( Amer) Est GFR (Non-Af Amer) BUN/Creatinine Ratio Glucose POC Glucose 239 H 256 H 206 H Calculated Osmolality Calcium 08/31/17 08/31/17 08/31/17 11:09 15:59 20:22 WBC RBC Hgb Hct MCV MCH MCHC RDW Plt Count MPV Immature Plt Fraction Sodium Potassium Chloride Carbon Dioxide BUN Creatinine Est GFR ( Amer) Est GFR (Non-Af Amer) BUN/Creatinine Ratio Glucose POC Glucose 358 H 237 H 293 H Calculated Osmolality Calcium 09/01/17 09/01/17 05:46 05:46 WBC 12.2 H RBC 2.95 L Hgb 7.5 L Hct 22.9 L MCV 77.6 L MCH 25.4 L MCHC 32.8 RDW 19.9 H Plt Count 88 L MPV 10.2 Immature Plt Fraction 5.3 Sodium 126 L Potassium 4.3 Chloride 97 L Carbon Dioxide 22 BUN 27 H Creatinine 0.90 Est GFR ( Amer) > 60 Est GFR (Non-Af Amer) > 60 BUN/Creatinine Ratio 30 H Glucose 181 H POC Glucose Calculated Osmolality 272 L Calcium 7.4 L - ABG Interpretation ABG results: PT/INR, D-dimer PT 20.9 Seconds (9.4-12.1) H 08/28/17 03:58 Consult Discharge Plan - Plan Referrals: Raymundo Escobedo DO [Primary Care Provider] - 09/07/17 10:20 am
--- NOTE | 2017-09-01 14:04 | Event Note ---
Date of Encounter: 09/01/17 Time of Encounter: 14:00 Informed by staff that Dr. Holley had long conversation with pt's re: clinical condition, and has decided to take him home with hospice care. and pt brother tearful at bedside. She is currently consulting with other family members regarding which hospice agency they want to utilized - she desires the same agency that cared for his father. She will need DME setup prior to discharge. Discussed code status once again, and she wants to complete this in the am. Provided emotional support.
--- NOTE | 2017-09-01 14:29 | Internal Med Progress Note ---
Date of Encounter: 09/01/17 Time of Encounter: 14:26 - Assessment and plan (1) Hepatic encephalopathy Current Visit: Yes Status: Resolved Assessment and plan: Acute hepatic encephalopathy due to cirrhosis and hepatocellular carcinoma Continue lactulose, reinforce compliance Continue Xifaxan not improving, initial ammonia level was 140, then 81 then 69. Despite being on appropriate therapy his mentation has not gone back to baseline Hospice care information provided by palliative care. CODE STATUS to be confirmed in the morning. (2) Anemia Current Visit: Yes Status: Chronic Assessment and plan: Symptomatic anemia. Possible acute blood loss anemia, consider possible GI bleed upper versus lower Protonix IV, discontinued IV fluids, decreased dose of Lasix, Hemoccult was positive, there is no active bleeding at the moment Monitor CBC Transfuse 1 unit of blood, may stop transfusing blood products if hospice is confirmed Re-consulted GI to consider endoscopy Protonix IV EGD not able to be performed by GI due to patient's critical condition. Qualifiers: Anemia type: unspecified type Qualified Code(s): D64.9 - Anemia, unspecified (3) HCC (hepatocellular carcinoma) Current Visit: No Status: Chronic Assessment and plan: Followed by oncology, hold sorafenib for now (4) Essential tremor Current Visit: No Status: Acute (5) HTN (hypertension) Current Visit: Yes Status: Chronic Assessment and plan: Stable Qualifiers: Hypertension type: essential hypertension Qualified Code(s): I10 - Essential (primary) hypertension (6) Hyponatremia Current Visit: Yes Status: Acute Assessment and plan: Likely related to ascites/volume overload Continue fluid restriction Continue to monitor - Subjective Interval history: Lethargic, confused , apears comfortable , unable to complete ROS - Constitutional Vitals: Temp Pulse Resp BP Pulse Ox 97.5 F L 103 18 93/57 98 09/01/17 10:46 09/01/17 10:46 09/01/17 10:46 09/01/17 10:46 09/01/17 10:46 General appearance: Present: cooperative, A&O X 1, pleasant, no acute distress, underweight, answers questions appropriately - Head Head exam: Present: atraumatic, normocephalic - Eye Eye exam: Present: PERRL, conjuntiva pink, sclera anicteric Pupils: Present: PERRL - Neck Neck exam general surgery: Present: supple, trachea midline. Absent: lymphadenopathy - Respiratory Respiratory exam: Present: CTAB. Absent: accessory muscle use, rales, rhonchi, wheezes - Cardiovascular Cardiovascular exam: Present: RRR, +S1, +S2. Absent: diastolic murmur, gallop, rubs, systolic murmur - GI/Abdominal GI/Abdominal exam: Present: distended, normal bowel sounds, soft, no peritoneal signs. Absent: tenderness - Extremities Exam Extremities exam: Present: warm, radial pulses palpable and symmetrical. Absent : calf tenderness, cyanotic, pedal edema - Neurological Exam Neurological exam: Present: CN II-XII intact, no focal deficits. Absent: oriented X3, pronater drift, facial droop, speech deficit - Skin Skin exam: Present: dry, intact Internal Medicine: Result - Labs CBC & Chem 7: 09/01/17 05:46 09/01/17 05:46 Labs: Short CBC 09/01/17 Range/Units 05:46 WBC 12.2 H (4.3-11.1) K/mcL Hgb 7.5 L (12.9-16.9) g/dL Hct 22.9 L (37.5-50.1) % Plt Count 88 L (140-400) K/mcL [facility] 09/01/17 05:46 Sodium 126 L Potassium 4.3 Chloride 97 L Carbon Dioxide 22 BUN 27 H Creatinine 0.90 Glucose 181 H Calcium 7.4 L - ABG Interpretation ABG results: PT/INR, D-dimer PT 20.9 Seconds (9.4-12.1) H 08/28/17 03:58 - VTE Documentation of Mechanical Device: Intermittent pneumatic compression device Consult Discharge Plan - Plan Referrals: Raymundo Escobedo DO [Primary Care Provider] - 09/07/17 10:20 am
[2017-09-01] MEDS ORDERED: 0.9 % Sodium Chloride 250 ML ONE (17:46)
[2017-09-02] MEDS: *HR* OxyCODONE Immed Rel 5 MG TABLET PO PRN ×4 (00:03→22:31)
[2017-09-02 05:40] LABS: Hematocrit 27.8 % (37.5-50.1); Immature Platelets 6.1 % (1.1-6.1); Mean Corpuscular HGB Conc 32.4 g/dL (31.6-35.5); Mean Corpuscular Hemoglobin 25.6 pg (28.0-33.3); Mean Platelet Volume 9.7 fL (9.4-12.4); Red Blood Count 3.52 M/mcL (4.19-5.50); Red Cell Distribution Width 19.4 % (11.5-14.5)
[2017-09-02 05:50] LABS: BUN/Creatinine Ratio 31 (6-26); Blood Urea Nitrogen 26 mg/dL (8-26); Calcium 7.5 mg/dL (8.6-10.8); Carbon Dioxide 20 mEq/L (19-29); Chloride 97 mEq/L (98-109); Glucose 179 mg/dL (70-99); Osmolality,Calculated 271 (280-300); Potassium 4.2 mEq/L (3.5-4.5); Sodium 126 mEq/L (136-145); eGFR For African Americans > 60 (> 60); eGFR For Non-African Americans > 60 (> 60)
[2017-09-02] MEDS: Iron Polysaccharide Complex 150 MG CAPSULE PO SCH ×2 (07:33→22:30)
[2017-09-02] MEDS: Lactulose Oral Soln 20 GM/30 ML UDC PO SCH ×3 (07:33→22:31)
[2017-09-02] MEDS: Cyanocobalamin (B-12) 1,000 MCG TABLET PO SCH (07:33)
[2017-09-02] MEDS: Zinc Sulfate 220 MG CAPSULE PO SCH (07:33)
[2017-09-02] MEDS: Pantoprazole 40 MG VIAL IVP SCH (07:33)
[2017-09-02] MEDS: Multivit/Ca/Min/Fe/FA 1 TAB TABLET PO SCH (07:34)
[2017-09-02] MEDS: Furosemide 40 MG TABLET PO SCH (07:34)
[2017-09-02] MEDS: Nicotine 14 MG PATCH.TD24 TD SCH (07:34)
[2017-09-02] MEDS: Insulin LISPRO 300 UNITS/3 ML VIAL SQ SCH ×4 (07:44→22:34)
--- NOTE | 2017-09-02 09:25 | Palliative Progress Note ---
Date of Encounter: 09/02/17 Time of Encounter: 09:05 - Assessment and plan (1) Cancer associated pain Current Visit: Yes Status: Acute Assessment and plan: Continue Oxycodone PRN, has utilized x4 last 24 hours. Monitor (2) Counseling regarding advanced care planning and goals of care Current Visit: Yes Status: Acute Assessment and plan: states [facility] nurse coming to hospital today to meet with them and coordinate delivery of DME. Plan D/C for Wednesday AM. D/W Dr. Holley (3) Hepatic encephalopathy Current Visit: Yes Status: Resolved (4) HCC (hepatocellular carcinoma) Current Visit: No Status: Chronic - Time Spent With Patient Total time spent is greater than 50% in coordination of care (as documented) at patient's floor/unit and/or counseling patient: 25 - 35 minutes - Subjective Interval history: Patient more alert this am, did eat breakfast. Asking to go home. C/o low back pain, he states pain medication is effective. at bedside - Constitutional Vitals: Abnormal lab results WBC 11.6 K/mcL (4.3-11.1) H 09/02/17 04:59 RBC 3.52 M/mcL (4.19-5.50) L 09/02/17 04:59 Hgb 9.0 g/dL (12.9-16.9) L D 09/02/17 04:59 Hct 27.8 % (37.5-50.1) L 09/02/17 04:59 MCV 79.0 fL (83.0-100.0) L 09/02/17 04:59 MCH 25.6 pg (28.0-33.3) L 09/02/17 04:59 RDW 19.4 % (11.5-14.5) H 09/02/17 04:59 Plt Count 80 K/mcL (140-400) L 09/02/17 04:59 Nucleated RBCs/100 WBC 0.8 /100 WBC (0) H 08/31/17 05:19 Platelet Estimate Decreased (Normal) L 08/28/17 03:58 Polychromasia 1+ (Not Present) A 08/28/17 03:58 Poikilocytosis 1+ (Not Present) A 08/28/17 03:58 Anisocytosis 2+ (Not Present) A 08/28/17 03:58 Microcytosis Present (Not Present) A 08/28/17 03:58 Macrocytosis Present (Not Present) A 08/28/17 03:58 Schistocytes 1+ (Not Present) A 08/28/17 03:58 PT 20.9 Seconds (9.4-12.1) H 08/28/17 03:58 Sodium 126 mEq/L (136-145) L 09/02/17 04:59 Chloride 97 mEq/L (98-109) L 09/02/17 04:59 BUN/Creatinine Ratio 31 (6-26) H 09/02/17 04:59 Glucose 179 mg/dL (70-99) H 09/02/17 04:59 POC Glucose 230 (58-89) H 09/01/17 20:30 Hemoglobin A1c 5.8 % (-5.6) H 08/28/17 03:58 Calculated Osmolality 271 (280-300) L 09/02/17 04:59 Calcium 7.5 mg/dL (8.6-10.8) L 09/02/17 04:59 Magnesium 1.3 mg/dL (1.6-2.6) L 08/28/17 03:58 Iron 27 mcg/dL (65-175) L 08/27/17 15:34 % Saturation 10 % (20-55) L 08/27/17 15:34 Total Bilirubin 1.4 mg/dL (0.2-1.2) H 08/31/17 05:19 Direct Bilirubin 0.8 mg/dL (0.0-0.5) H 08/27/17 12:26 AST 114 Units/L (5-34) H 08/31/17 05:19 ALT 107 Units/L (0-55) H 08/31/17 05:19 Alkaline Phosphatase 871 Units/L (38-126) H 08/31/17 05:19 Serum Total Protein 5.7 g/dL (6.0-8.3) L 08/31/17 05:19 Albumin 2.0 g/dL (3.5-5.0) L 08/31/17 05:19 Globulin 3.7 g/dL (2.4-3.5) H 08/31/17 05:19 Albumin/Globulin Ratio 0.5 (1.1-2.2) L 08/31/17 05:19 HDL Cholesterol 6 mg/dL (40-59) L 08/28/17 03:58 Cholesterol/HDL Ratio 13.8 (0-4.9) H 08/28/17 03:58 Stool Occult Blood Positive (Negative) A 08/27/17 21:38 - Respiratory Respiratory exam: Present: decreased breath sounds, CTAB - Cardiovascular Cardiovascular exam: Present: +S1, +S2 - GI/Abdominal GI/Abdominal exam: Present: diminished bowel sounds, distended, soft - Extremities Exam Extremities exam: Present: normal capillary refill, normal inspection - Neurological Exam Neurological exam: Present: alert Additional comments: Oriented to name only, but realizes he is not at home. Will follow occasional simple command - Skin Skin exam: Present: dry, pallor, warm Palliative Quality Palliative Quality: Screen for Code Status: Yes, Screen for Goals of Care: Yes, Screen for Pain: Yes, If Pain Regimen Started, Initiate Bowel Regimen: NA, Screen for Nausea/Vomitting: Yes - Labs CBC & Chem 7: 09/02/17 04:59 09/02/17 04:59 Labs: Laboratory Results - last 24 hr 09/01/17 09/01/17 09/01/17 06:57 10:43 14:35 WBC RBC Hgb Hct MCV MCH MCHC RDW Plt Count MPV Immature Plt Fraction Sodium Potassium Chloride Carbon Dioxide BUN Creatinine Est GFR ( Amer) Est GFR (Non-Af Amer) BUN/Creatinine Ratio Glucose POC Glucose 222 H 269 H Calculated Osmolality Calcium Blood Type B POSITIVE Antibody Screen NEGATIVE Crossmatch See Detail 09/01/17 09/01/17 09/02/17 15:51 20:30 04:59 WBC 11.6 H RBC 3.52 L Hgb 9.0 L D Hct 27.8 L MCV 79.0 L MCH 25.6 L MCHC 32.4 RDW 19.4 H Plt Count 80 L MPV 9.7 Immature Plt Fraction 6.1 Sodium Potassium Chloride Carbon Dioxide BUN Creatinine Est GFR ( Amer) Est GFR (Non-Af Amer) BUN/Creatinine Ratio Glucose POC Glucose 188 H 230 H Calculated Osmolality Calcium Blood Type Antibody Screen Crossmatch 09/02/17 04:59 WBC RBC Hgb Hct MCV MCH MCHC RDW Plt Count MPV Immature Plt Fraction Sodium 126 L Potassium 4.2 Chloride 97 L Carbon Dioxide 20 BUN 26 Creatinine 0.85 Est GFR ( Amer) > 60 Est GFR (Non-Af Amer) > 60 BUN/Creatinine Ratio 31 H Glucose 179 H POC Glucose Calculated Osmolality 271 L Calcium 7.5 L Blood Type Antibody Screen Crossmatch - ABG Interpretation ABG results: PT/INR, D-dimer PT 20.9 Seconds (9.4-12.1) H 08/28/17 03:58 Consult Discharge Plan - Plan Referrals: Raymundo Escobedo DO [Primary Care Provider] - 09/07/17 10:20 am
--- NOTE | 2017-09-02 09:29 | Internal Med Progress Note ---
Date of Encounter: 09/02/17 Time of Encounter: 09:25 - Assessment and plan (1) Hepatic encephalopathy Current Visit: Yes Status: Resolved Assessment and plan: Acute hepatic encephalopathy due to cirrhosis and hepatocellular carcinoma Continue lactulose, reinforce compliance Continue Xifaxan not improving, initial ammonia level was 140, then 81 then 69. Despite being on appropriate therapy his mentation has not gone back to baseline Hospice care will be provided at home. CODE STATUS changed to DNRcc The patient is unable to reposition without the use of side rails. Needs a wheelchair due to mobility limitations and to assist in ADLs, self care and getting around in home as a result of severe debility due to combination of multiple comorbidities including hepatic encephalopathy and symptomatic anemia (2) Anemia Current Visit: Yes Status: Chronic Assessment and plan: Symptomatic anemia. Possible acute blood loss anemia, consider possible GI bleed upper versus lower continue omeprazole BID, discontinued IV fluids, Lasix, Hemoccult was positive , there is no active bleeding at the moment Monitor CBC Transfused 1 unit of blood, stop transfusing more blood products EGD not able to be performed by GI due to patient's critical condition. Qualifiers: Qualified Code(s): D64.9 - Anemia, unspecified (3) HCC (hepatocellular carcinoma) Current Visit: No Status: Chronic Assessment and plan: Followed by oncology, hold sorafenib for now (4) Essential tremor Current Visit: No Status: Acute (5) HTN (hypertension) Current Visit: Yes Status: Chronic Assessment and plan: Stable Qualifiers: Qualified Code(s): I10 - Essential (primary) hypertension (6) Hyponatremia Current Visit: Yes Status: Acute Assessment and plan: Likely related to ascites/volume overload stop checking labs due to hospice care - Subjective Interval history: Lethargic, confused , appears to be comfortable , unable to complete ROS - Constitutional Vitals: Temp Pulse Resp BP Pulse Ox 97.6 F 105 18 113/69 97 09/02/17 07:05 09/02/17 07:05 09/02/17 07:05 09/02/17 07:05 09/02/17 07:56 General appearance: Present: cooperative, A&O X 1, pleasant, no acute distress, underweight, answers questions appropriately Exam: - Head Head exam: Present: atraumatic, normocephalic - Eye Eye exam: Present: PERRL, conjuntiva pink, sclera anicteric Pupils: Present: PERRL - Neck Neck exam general surgery: Present: supple, trachea midline. Absent: lymphadenopathy - Respiratory Respiratory exam: Present: CTAB. Absent: accessory muscle use, rales, rhonchi, wheezes - Cardiovascular Cardiovascular exam: Present: RRR, +S1, +S2. Absent: diastolic murmur, gallop, rubs, systolic murmur - GI/Abdominal GI/Abdominal exam: Present: distended, normal bowel sounds, soft, no peritoneal signs. Absent: tenderness - Extremities Exam Extremities exam: Present: warm, radial pulses palpable and symmetrical. Absent : calf tenderness, cyanotic, pedal edema - Neurological Exam Neurological exam: Present: CN II-XII intact, no focal deficits. Absent: oriented X3, pronater drift, facial droop, speech deficit - Skin Skin exam: Present: dry, intact Internal Medicine: Result - Labs CBC & Chem 7: 09/02/17 04:59 09/02/17 04:59 Labs: Short CBC 09/02/17 Range/Units 04:59 WBC 11.6 H (4.3-11.1) K/mcL Hgb 9.0 L D (12.9-16.9) g/dL Hct 27.8 L (37.5-50.1) % Plt Count 80 L (140-400) K/mcL [facility] 09/02/17 04:59 Sodium 126 L Potassium 4.2 Chloride 97 L Carbon Dioxide 20 BUN 26 Creatinine 0.85 Glucose 179 H Calcium 7.5 L - ABG Interpretation ABG results: PT/INR, D-dimer PT 20.9 Seconds (9.4-12.1) H 08/28/17 03:58 - VTE Documentation of Mechanical Device: Intermittent pneumatic compression device Consult Discharge Plan - Plan Referrals: Raymundo Escobedo DO [Primary Care Provider] - 09/07/17 10:20 am
[2017-09-02] MEDS ORDERED: *HR* LORazepam 2 MG/ML VIAL IVP PRN (09:30)
[2017-09-02] MEDS ORDERED: Morphine Oral CONC 5 MG/0.25 ML ORAL.SYG PO PRN ×2 (09:30→10:20)
[2017-09-03 08:02] VITALS: BP 78/44
--- NOTE | 2017-09-03 08:03 | Discharge Summary ---
Date of Encounter: 09/03/17 Time of Encounter: 07:55 - Discharge Diagnosis (1) Hepatic encephalopathy Priority: Primary Status: Resolved Comments: Acute hepatic encephalopathy due to cirrhosis and hepatocellular carcinoma (2) Anemia Priority: Primary Status: Chronic Comments: Symptomatic anemia. Possible acute blood loss anemia, consider possible GI bleed upper versus lower Qualifiers: Anemia type: unspecified type Qualified Code(s): D64.9 - Anemia, unspecified (3) HCC (hepatocellular carcinoma) Priority: Secondary Status: Chronic (4) Essential tremor Priority: Secondary Status: Acute (5) HTN (hypertension) Priority: Secondary Status: Chronic Qualifiers: Hypertension type: essential hypertension Qualified Code(s): I10 - Essential (primary) hypertension (6) Hyponatremia Priority: Secondary Status: Acute Comments: Likely related to ascites/volume overload, poor oral intake - Discharge Medications Prescriptions: LORazepam Oral Conc [Ativan Oral Conc] 1 mg PO Q6HR 7 Days mls Fentanyl [Duragesic] 1 each TD Q72H #5 patch.td72 Furosemide [Lasix] 40 mg PO DAILY #30 tablet Lactulose 20 gm PO TID 30 Days solution Omeprazole [PriLOSEC] 40 mg PO BID #60 / OxyCODONE Immed Rel [Roxicodone 5 MG] 5 mg PO Q4H PRN #30 tablet PRN Reason: Pain Home Medications: HydrOXYzine 25 mg PO TID 07/17/15 [History] Insulin ASPART [NovoLOG] 8 - 10 unit SQ TID 11/03/16 [History] Insulin Glargine [Lantus] 36 unit SQ HS 11/03/16 [History] Rifaximin [Xifaxan] 550 mg PO BID 11/03/16 [History] Iron Polysaccharide Complex [Ferrex 150] 100 mg PO BID 06/16/17 [History] Atenolol [Tenormin] 25 mg PO Q48H 08/27/17 [History] Fentanyl [Duragesic] 1 each TD Q72H #5 patch.td72 09/03/17 [Rx] Furosemide [Lasix] 40 mg PO DAILY #30 tablet 09/03/17 [Rx] LORazepam Oral Conc [Ativan Oral Conc] 1 mg PO Q6HR 7 Days mls 09/03/17 [Rx] Lactulose 20 gm PO TID 30 Days solution 09/03/17 [Rx] Omeprazole [PriLOSEC] 40 mg PO BID #60 / 09/03/17 [Rx] OxyCODONE Immed Rel [Roxicodone 5 MG] 5 mg PO Q4H PRN #30 tablet 09/03/17 [Rx] Allergies/Adverse Reactions: 3 Allergy/AdvReac Type Severity Reaction Status Date / Time codeine AdvReac Vomiting Verified 08/27/17 10:32 Date of admission: 08/28/17 12:47 Primary care physician: Raymundo Escobedo, Consults: 08/29/17 09:29 Consult to Gastroenterology [CONS] Routine Consulting Provider: Gastroenterology Vijaya Reason for Consult: blood loss anemia, cirrhosis Call Completed: No 08/30/17 13:39 Consult to Palliative Care [CONS] Routine Comment: Consulting Provider: Palliative Care Vijaya Reason for Consult: possible hospice or palliative care needs at home. liver cancer with mets to bone. Time Notified: 13:40 Call Completed: No - Patient Status Disposition: Hospice - Home Condition: Serious Overall status at discharge: patient is not back to baseline - Discharge Instructions Follow Up With: Raymundo Escobedo DO [Primary Care Provider] - 09/07/17 10:20 am Additional Instructions: Follow-up with hospice services at home, continue Roxicodone for pain, Ativan as needed for anxiety and shortness of breath. - Diet and Activity Diet: low fat, low cholesterol Hospital course: Mr. Moralez is a 57 year old male with a past medical history of hepatocellular carcinoma with skeletal metastasis, cirrhosis, GERD, HLD, HTN, diabetes controlled with insulin presented from the ED with a chief complaint of altered mental status and shakiness. Patient was on chemotherapy pills (sorafenib) and was followed by Dr. Qureshi. Was admitted from the ED due to AMS and shakiness. Ammonia level was found to be 140, he was started on lactulose. Initially, his medical condition is improved slightly but started to deteriorate. It was noticed that his hemoglobin started to decrease from the past value in July 2011 down to 7.5. There was no evidence of active bleeding, his Hemoccult was positive. GI was consulted but unfortunately the patient was not stable enough to tolerate an upper endoscopy. Due to his poor prognosis, palliative care was consulted and the the patient's agreed to take him home on hospice. The patient is extremely somnolent/lethargic, last sodium was 126. He was started on doses of Roxanol, Ativan, fentanyl patch will be resumed at a lower dose of 50 g every 72 hours. - Time Spent with Patient Total time spent providing and/or coordinating discharge services: Greater than 30 minutes (40 min) - Constitutional Vitals: Temp Pulse Resp BP Pulse Ox 98.2 F 84 16 102/65 97 09/03/17 04:05 09/03/17 04:05 09/03/17 04:05 09/03/17 04:05 09/03/17 04:05 General appearance: Present: cooperative, A&O X 1, pleasant, no acute distress, underweight, answers questions appropriately Exam: - Head Head exam: Present: atraumatic, normocephalic - Eye Eye exam: Present: PERRL, conjuntiva pink, sclera anicteric Pupils: Present: PERRL - Neck Neck exam general surgery: Present: supple, trachea midline. Absent: lymphadenopathy - Respiratory Respiratory exam: Present: CTAB. Absent: accessory muscle use, rales, rhonchi, wheezes - Cardiovascular Cardiovascular exam: Present: RRR, +S1, +S2. Absent: diastolic murmur, gallop, rubs, systolic murmur - GI/Abdominal GI/Abdominal exam: Present: distended, normal bowel sounds, soft, no peritoneal signs. Absent: tenderness. Ascites noticed - Extremities Exam Extremities exam: Present: warm, radial pulses palpable and symmetrical. Absent : calf tenderness, cyanotic, pedal edema - Neurological Exam Neurological exam: Present: CN II-XII intact, no focal deficits. Absent: oriented X3, pronater drift, facial droop, speech deficit - Skin Skin exam: Present: dry, intact - VTE Documentation of Mechanical Device: Intermittent pneumatic compression device
--- NOTE | 2017-09-03 08:12 | Physician Discharge Referral ---
Home Health/Hosp Referral Info Transfer to: Hospice Provider in Charge Post Discharge: [employer]can[employer] Operator - Diagnosis (1) Hepatic encephalopathy Status: Resolved (2) Anemia Status: Chronic (3) HCC (hepatocellular carcinoma) Status: Chronic (4) Essential tremor Status: Acute (5) HTN (hypertension) Status: Chronic (6) Hyponatremia Status: Acute - Respiratory Orders Smoking Cessation: Smoking cessation has been advised. For more information, call the [place] Tobacco Quit Line at 5-915-ZDQW-NOW. - Services Needed Following services are medically necessary services: Nursing, Home Health Aide Home Care Orders: Follow-up with hospice services at home, continue Roxicodone for pain, Ativan as needed for anxiety and shortness of breath. - Transfer Medications Prescriptions: LORazepam Oral Conc [Ativan Oral Conc] 1 mg PO Q6HR 7 Days mls Fentanyl [Duragesic] 1 each TD Q72H #5 patch.td72 Furosemide [Lasix] 40 mg PO DAILY #30 tablet Lactulose 20 gm PO TID 30 Days solution Omeprazole [PriLOSEC] 40 mg PO BID #60 / OxyCODONE Immed Rel [Roxicodone 5 MG] 5 mg PO Q4H PRN #30 tablet PRN Reason: Pain Home Medications: HydrOXYzine 25 mg PO TID 07/17/15 [History] Insulin ASPART [NovoLOG] 8 - 10 unit SQ TID 11/03/16 [History] Insulin Glargine [Lantus] 36 unit SQ HS 11/03/16 [History] Rifaximin [Xifaxan] 550 mg PO BID 11/03/16 [History] Iron Polysaccharide Complex [Ferrex 150] 100 mg PO BID 06/16/17 [History] Atenolol [Tenormin] 25 mg PO Q48H 08/27/17 [History] Fentanyl [Duragesic] 1 each TD Q72H #5 patch.td72 09/03/17 [Rx] Furosemide [Lasix] 40 mg PO DAILY #30 tablet 09/03/17 [Rx] LORazepam Oral Conc [Ativan Oral Conc] 1 mg PO Q6HR 7 Days mls 09/03/17 [Rx] Lactulose 20 gm PO TID 30 Days solution 09/03/17 [Rx] Omeprazole [PriLOSEC] 40 mg PO BID #60 / 09/03/17 [Rx] OxyCODONE Immed Rel [Roxicodone 5 MG] 5 mg PO Q4H PRN #30 tablet 09/03/17 [Rx] Allergies/Adverse Reactions: 3 Allergy/AdvReac Type Severity Reaction Status Date / Time codeine AdvReac Vomiting Verified 08/27/17 10:32 Certification: Further, I certify that my clinical findings support that this patient is homebound (i.e. absences from home require considerable and taxing effort and are for medical reasons or temple services or infrequently or short duration when for other reasons) because: Homebound Reason: Patient requires assistance of a person or device to safely leave home Attestation: My signature below is to certify that this patient is under my care and that I, or nurse practitioner, or a physician's nurse practitioner physician assistant working with me, has a face-to -face encounter with this patient.
[2017-09-03] MEDS ORDERED: Furosemide 40 MG TABLET PO SCH (09:00)
[2017-09-03] MEDS: Insulin LISPRO 300 UNITS/3 ML VIAL SQ SCH ×2 (09:33→10:45)
[2017-09-03] MEDS: Nicotine 14 MG PATCH.TD24 TD SCH (09:42)
[2017-09-03] MEDS: Lactulose Oral Soln 20 GM/30 ML UDC PO SCH (09:48)
[2017-09-03] MEDS: Iron Polysaccharide Complex 150 MG CAPSULE PO SCH (09:51)
[2017-09-03] MEDS: Zinc Sulfate 220 MG CAPSULE PO SCH (09:53)
[2017-09-03] MEDS: Cyanocobalamin (B-12) 1,000 MCG TABLET PO SCH (09:53)
[2017-09-03] MEDS: Multivit/Ca/Min/Fe/FA 1 TAB TABLET PO SCH (09:53)
== END 2017-09-03 12:40 | disposition hospice, home (50) | DRG 433 ==
LOC: 2ANU 11:11 → EMEROO 11:11 → SUATTDRO 14:00 → 2ANU 15:13
PROVIDERS: ADMIT Internal Medicine; ATTEND Internal Medicine